=== PATIENT | female | born 1955 | race Hispanic/Latino ===

== ENCOUNTER 2018-08-11 13:56 | Emergency (ER) | payer OTHER ==
--- NOTE | 2018-08-11 15:35 | RAD REPORT ---
EXAM DESCRIPTION: Sharon Broussard (2 Views)08/11/2018 3:28 pm CLINICAL HISTORY: Chest pain COMPARISON: 2010 FINDINGS: The lungs appear clear of acute infiltrate. The heart is normal size IMPRESSION: No acute abnormalities displayed
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
--- NOTE | 2018-08-12 12:11 | EKG ---
Test Date: 2018-08-11 Test Time: 14:53:50 Electrical And Instrumentation Manager: ROBERT MEASUREMENT RESULTS: Intervals: Rate: 69 IL: 134 QRSD: 70 QT: 406 QTc: 435 [place]: P: 48 IL: 134 QRS: -19 T: 6 INTERPRETIVE STATEMENTS: Normal sinus rhythm Voltage criteria for left ventricular hypertrophy Abnormal ECG Compared to ECG 12/25/2010 02:38:49 No significant changes Electronically Signed On 08-12-18 12:07:42 CDT by Tre Humphreys
== END 2018-08-11 16:17 | disposition home or self-care (01) ==
LOC: ER 13:56
DX: T21.01XA Burn of unspecified degree of chest wall, initial encounter (principal); Z85.3 Personal history of malignant neoplasm of breast
CPT/HCPCS: 71046; 93005; 99284

== ENCOUNTER 2019-04-10 13:22 | Observation (INO) | payer OTHER, SELFPAY ==
[2019-04-10 14:38] LABS: Absolute Lymphocytes (CBC) 0.7 K/uL (0.7-4.9); Absolute Monocytes 0.3 K/uL (0.1-1.3); Absolute Neutrophil 8.8 K/uL (1.8-8.0); Basophils % 0.4 % (0-1.3); Lymphocytes % 6.9 % (15.3-44.8); MPV 8.3 fL (7.6-11.3); Monocytes % 3.1 % (3.3-12.3); RBC Red Blood Cell Count 5.11 M/uL (3.86-4.86)
[2019-04-10] MEDS ORDERED: FENTANYL CITR 100 MCG/2 ML ONE (14:40)
[2019-04-10] MEDS ORDERED: NA CHLORIDE 0.9% 500 ML ONE (14:40)
[2019-04-10] MEDS ORDERED: ONDANSETRON 4 MG/2 ML VIAL ONE (14:40)
[2019-04-10 14:41] LABS: Protime INR 1.04
[2019-04-10 15:15] LABS: Blood Morphology Comment NOT SEEN (NOT SEEN); Platelet Estimate ADEQ; Urine White Blood Cell Casts OK
[2019-04-10 15:22] LABS: ALT/SGPT 23 U/L (12-78); AST/SGOT 18 U/L (15-37); Albumin 3.7 g/dL (3.4-5.0); Alkaline Phosphatase 79 U/L (45-117); BUN Blood Urea Nitrogen 14 mg/dL (7-18); Bicarbonate 27 mmol/L (21-32); Bilirubin Direct 0.2 mg/dL (0-0.2); Bilirubin Total 0.8 mg/dL (0.2-1.0); Glucose Level 92 mg/dL (74-106); Lipase 132 U/L (73-393); NT PRO-BNP 279 pg/mL (<125); Potassium 3.7 mmol/L (3.5-5.1); Protein, Total 8.1 g/dL (6.4-8.2); Sodium Level 136 mmol/L (136-145); Troponin (Emerg Dept Use Only) < 0.02 ng/mL (0.0-0.045)
[2019-04-10] MEDS ORDERED: ACETAMINOPHEN 500 MG TAB ONE (15:53)
--- NOTE | 2019-04-10 15:54 | EDPHYS ---
Physician Documentation [facility] Name: Tessa Delvalle Age: 63 yrs Sex: Female : 1955 Arrival Date: 04/10/2019 Time: 13:25 Bed 5 Private MD: ED Physician Macho Foster HPI: 04/10 14:03 This 63 yrs old Female presents to ER via Ambulatory with complaints of alexis Breathing Difficulty, Weakness, Back Pain. 14:03 The patient has shortness of breath at rest, with light activity. Onset: The alexis symptoms/episode began/occurred 1 day(s) ago. Duration: The symptoms are continuous, and are steadily getting worse. The patient's shortness of breath has no apparent modifying factors. Associated signs and symptoms: Pertinent positives: nausea, PAIN ALL OVER, HEADACHE. Severity of symptoms: At their worst the symptoms were mild moderate in the emergency department the symptoms are unchanged. The patient has not experienced similar symptoms in the past. Historical: - Allergies: 13:37 No Known Allergies; aj1 - Home Meds: 13:37 None [Active]; aj1 - PMHx: 13:37 breast cancer; CHEMO/RADIATION; aj1 - Immunization history:: Flu vaccine is up to date. - Social history:: Smoking status: Patient/guardian denies using tobacco. - Ebola Screening: : Patient denies travel to an Ebola-affected area in the 21 days before illness onset. ROS: 14:05 Constitutional: Negative for fever, chills, and weight loss, Eyes: Negative for injury, alexis pain, redness, and discharge, ENT: Negative for injury, pain, and discharge, Neck: Negative for injury, pain, and swelling, Cardiovascular: Negative for chest pain, palpitations, and edema, Abdomen/GI: Negative for abdominal pain, nausea, vomiting, diarrhea, and constipation, : Negative for injury, bleeding, discharge, and swelling, MS/Extremity: Negative for injury and deformity, Skin: Negative for injury, rash, and discoloration, Psych: Negative for depression, anxiety, suicide ideation, homicidal ideation, and hallucinations, Allergy/Immunology: Negative for hives, rash, and allergies, Endocrine: Negative for neck swelling, polydipsia, polyuria, polyphagia, and marked weight changes, Hematologic/Lymphatic: Negative for swollen nodes, abnormal bleeding, and unusual bruising. 14:05 Respiratory: Positive for shortness of breath. 14:05 Back: Positive for pain at rest, pain with movement. 14:05 Neuro: Positive for headache. Exam: 14:05 Constitutional: This is a well developed, well nourished patient who is awake, alert, alexis and in no acute distress. Head/Face: Normocephalic, atraumatic. Eyes: Pupils equal round and reactive to light, extra-ocular motions intact. Lids and lashes normal. Conjunctiva and sclera are non-icteric and not injected. Cornea within normal limits. Periorbital areas with no swelling, redness, or edema. ENT: Nares patent. No nasal discharge, no septal abnormalities noted. Tympanic membranes are normal and external auditory canals are clear. Oropharynx with no redness, swelling, or masses, exudates, or evidence of obstruction, uvula midline. Mucous membranes moist. Neck: Trachea midline, no thyromegaly or masses palpated, and no cervical lymphadenopathy. Supple, full range of motion without nuchal rigidity, or vertebral point tenderness. No Meningismus. Chest/axilla: Normal chest wall appearance and motion. Nontender with no deformity. No lesions are appreciated. Cardiovascular: Regular rate and rhythm with a normal S1 and S2. No gallops, murmurs, or rubs. Normal PMI, no JVD. No pulse deficits. Respiratory: Lungs have equal breath sounds bilaterally, clear to auscultation and percussion. No rales, rhonchi or wheezes noted. No increased work of breathing, no retractions or nasal flaring. Abdomen/GI: Soft, non-tender, with normal bowel sounds. No distension or tympany. No guarding or rebound. No evidence of tenderness throughout. Back: No spinal tenderness. No costovertebral tenderness. Full range of motion. Skin: Warm, dry with normal turgor. Normal color with no rashes, no lesions, and no evidence of cellulitis. MS/ Extremity: Pulses equal, no cyanosis. Neurovascular intact. Full, normal range of motion. Neuro: Awake and alert, GCS 15, oriented to person, place, time, and situation. Cranial nerves II-XII grossly intact. Motor strength 5/5 in all extremities. Sensory grossly intact. Cerebellar exam normal. Normal gait. Psych: Awake, alert, with orientation to person, place and time. Behavior, mood, and affect are within normal limits. 14:05 Musculoskeletal/extremity: DVT Exam: No signs of deep vein thrombosis. no pain, no swelling, no tenderness, negative Homans' sign noted on exam, no appreciated bluish discoloration, no erythema, no increased warmth. Vital Signs: 13:37 BP 104 / 54; Pulse 107; Resp 20; Temp 97.4(O); Pulse Ox 97% on R/A; Weight 85.73 kg aj1 (R); Height 5 ft. 2 in. (157.48 cm) (R); Pain 8/10; 15:01 Pulse 113; Resp 20; Pulse Ox 99% ; sv 15:28 BP 116 / 75; Pulse 116; Resp 18; Pulse Ox 99% ; sv 15:31 Temp 103.0(O); ph 16:45 BP 106 / 56; Pulse 102; Resp 20; Temp 99.6; Pulse Ox 98% on R/A; ph 18:00 BP 108 / 72; Pulse 99; Resp 20; Pulse Ox 100% on R/A; Pain 0/10; ph 19:08 BP 115 / 99; Pulse 95; Resp 22; Temp 98.4; Pulse Ox 98% on R/A; ph 13:37 Body Mass Index 34.57 (85.73 kg, 157.48 cm) aj1 MDM: 13:57 Patient medically screened. [facility] 14:06 Data reviewed: vital signs, nurses notes, lab test result(s), EKG, radiologic studies, alexis plain films. 04/10 14:03 Order name: Basic Metabolic Panel; Complete Time: 15:42 [facility] 04/10 14:03 Order name: CBC with Diff; Complete Time: 15:42 [facility] 04/10 14:03 Order name: LFT's; Complete Time: 15:42 [facility] 04/10 14:03 Order name: Magnesium; Complete Time: 15:42 [facility] 04/10 14:03 Order name: NT PRO-BNP; Complete Time: 15:42 [facility] 04/10 14:03 Order name: PT-INR; Complete Time: 15:42 [facility] 04/10 14:03 Order name: Troponin (emerg Dept Use Only); Complete Time: 15:42 [facility] 04/10 14:03 Order name: Lipase; Complete Time: 15:42 [facility] 04/10 14:03 Order name: Urine Culture [facility] 04/10 14:47 Order name: CBC Smear Scan; Complete Time: 15:42 EDWA 04/10 15:41 Order name: Blood Culture Adult (2) [facility] 04/10 15:41 Order name: Procalcitonin [facility] 04/10 15:41 Order name: Lactate [facility] 04/10 15:54 Order name: Flu [facility] 04/10 14:03 Order name: XRAY Chest (1 view); Complete Time: 16:31 [facility] 04/10 14:03 Order name: EKG; Complete Time: 14:04 [facility] 04/10 15:54 Order name: Strep; Complete Time: 16:31 [facility] 04/10 16:26 Order name: Throat Culture EDWA 04/10 17:00 Order name: CT Stone Protocol [facility] 04/10 17:04 Order name: Urine Dipstick--Ancillary (enter results) 04/10 14:03 Order name: Cardiac monitoring; Complete Time: 14:14 [facility] 04/10 14:03 Order name: EKG - Nurse/Tech; Complete Time: 14:14 [facility] 04/10 14:03 Order name: IV Saline Lock; Complete Time: 14:18 [facility] 04/10 14:03 Order name: Labs collected and sent; Complete Time: 14:18 [facility] 04/10 14:03 Order name: O2 Per Protocol; Complete Time: 14:14 [facility] 04/10 14:03 Order name: O2 Sat Monitoring; Complete Time: 14:14 [facility] 04/10 14:03 Order name: Urine Dipstick-Ancillary (obtain specimen); Complete Time: 17:03 [facility] 04/10 16:38 Order name: Diet Ada 1800 Jose; Complete Time: 16:39 ph Administered Medications: 14:30 Drug: NS 0.9% 500 ml Route: IV; Rate: bolus; Site: right antecubital; sv 14:45 Follow up: Response: No adverse reaction; IV Status: Completed infusion; IV Intake: ph 500ml 14:30 Drug: Zofran 4 mg Route: IVP; Site: right antecubital; sv 18:26 Follow up: Response: No adverse reaction ph 14:32 Drug: fentaNYL (PF) 25 mcg Route: IVP; Site: right antecubital; sv 15:00 Follow up: Response: No adverse reaction; Pain is decreased ph 15:00 Drug: NS 0.9% 1000 ml Route: IV; Rate: 125 ml/hr; Site: right antecubital; ph 18:58 Follow up: Response: No adverse reaction; IV Status: Infusion continued upon admission ph 15:51 Drug: Tylenol 1000 mg Route: PO; ph 17:00 Follow up: Response: No adverse reaction; Temperature is decreased ph 15:51 Drug: NS 0.9% 1000 ml Route: IV; Rate: 1 bolus; Site: right antecubital; ph 18:24 Follow up: Response: No adverse reaction; IV Status: Completed infusion; IV Intake: ph 1000ml 18:00 Drug: Rocephin - (cefTRIAXone) 1 grams Route: IVPB; Infused Over: 30 mins; Site: right ph hand; 19:05 Follow up: Response: No adverse reaction; IV Status: Completed infusion ph 18:20 Drug: NS 0.9% 1000 ml Route: IV; Rate: 1 bolus; Site: right hand; ph 20:00 Follow up: Response: No adverse reaction; IV Status: Infusion continued upon admission jd3 19:27 Not Given (Other Intervention Used): vancoMYCIN 1 grams IVPB once over 2 hrs ph 19:28 Not Given (Patient Refused): fentaNYL (PF) 25 mcg IVP once ph Disposition: 04/10/19 15:53 Hospitalization ordered by Amanda Ford for Inpatient Admission. Preliminary diagnosis are Dyspnea, Fever, unspecified, Malaise and fatigue, Cystitis. - Bed requested for Telemetry/MedSurg (Inpatient). - Status is Inpatient Admission. jd3 - Condition is Stable. - Problem is new. - Symptoms have improved. UTI on Admission? Yes Signatures: Dispatcher [employer] EDWA Josselin Rodriguez RN RN aj1 Mercy Morales RN Darlene Browning ph D, RN RN dw Anderson, Corey, MD MD cha Smirch, Shelby, RN RN ss Hall, Patricia, RN RNavies, Jonathon, RN RN jd3 Corrections: (The following items were deleted from the chart) 17:00 15:53 Hospitalization Ordered by Amanda Ford MD for Inpatient Admission. Preliminary [facility] diagnosis is Dyspnea; Fever, unspecified; Malaise and fatigue. Bed requested for Telemetry/MedSurg (Inpatient). Status is Inpatient Admission. Condition is Stable. Problem is new. Symptoms have improved. UTI on Admission? No. [facility] 18:39 17:00 04/10/2019 15:53 Hospitalization Ordered by Amanda Ford MD for Inpatient dw Admission. Preliminary diagnosis is Dyspnea; Fever, unspecified; Malaise and fatigue; Cystitis. Bed requested for Telemetry/MedSurg (Inpatient). Status is Inpatient Admission. Condition is Stable. Problem is new. Symptoms have improved. UTI on Admission? Yes. [facility] 20:14 18:39 04/10/2019 15:53 Hospitalization Ordered by Amanda Ford MD for Inpatient jd3 Admission. Preliminary diagnosis is Dyspnea; Fever, unspecified; Malaise and fatigue; Cystitis. Bed requested for Telemetry/MedSurg (Inpatient). Status is Inpatient Admission. Condition is Stable. Problem is new. Symptoms have improved. UTI on Admission? Yes. dw
--- NOTE | 2019-04-10 15:54 | ER ---
Nurse's Notes [facility] Name: Tessa Delvalle Age: 63 yrs Sex: Female : 1955 Arrival Date: 04/10/2019 Time: 13:25 Bed 5 Private MD: Diagnosis: Dyspnea;Fever, unspecified;Malaise and fatigue;Cystitis Presentation: 04/10 13:36 Presenting complaint: Patient states: "yesterday I had an injection for osteoporosis aj1 and I think it made me sick. My back hurts, and I feel like I can't breathe too well". Transition of care: patient was not received from another setting of care. Onset of symptoms was April 10, 2019. Risk Assessment: Do you want to hurt yourself or someone else? Patient reports no desire to harm self or others. Initial Sepsis Screen: Does the patient meet any 2 criteria? HR > 90 bpm. No. Patient's initial sepsis screen is negative. Does the patient have a suspected source of infection? No. Patient's initial sepsis screen is negative. Care prior to arrival: None. 13:36 Method Of Arrival: Ambulatory aj 13:36 Acuity: ASTON 3 aj1 Triage Assessment: 13:37 General: Appears in no apparent distress. comfortable, Behavior is calm, cooperative, aj1 appropriate for age. Pain: Complains of pain in back and neck Pain currently is 8 out of 10 on a pain scale. Neuro: Level of Consciousness is awake, alert, obeys commands. Cardiovascular: Patient's skin is warm and dry. Respiratory: Reports shortness of breath Airway is patent Respiratory effort is even, unlabored, Respiratory pattern is regular, symmetrical, Onset: The symptoms/episode began/occurred today, the patient has mild shortness of breath. Historical: - Allergies: 13:37 No Known Allergies; aj1 - Home Meds: 13:37 None [Active]; aj1 - PMHx: 13:37 breast cancer; CHEMO/RADIATION; aj1 - Immunization history:: Flu vaccine is up to date. - Social history:: Smoking status: Patient/guardian denies using tobacco. - Ebola Screening: : Patient denies travel to an Ebola-affected area in the 21 days before illness onset. Screenin:31 Abuse screen: Denies threats or abuse. Denies injuries from another. Nutritional ph screening: No deficits noted. Tuberculosis screening: No symptoms or risk factors identified. Fall Risk None identified. Assessment: 14:15 General: Appears in no apparent distress. uncomfortable, obese, well groomed, Behavior ph is calm, cooperative, appropriate for age. Pain: Complains of pain in left mid back and right mid back and neck. Cardiovascular: Reports fatigue, shortness of breath, Denies chest pain, nausea, palpitations, vomiting, Capillary refill < 3 seconds in bilateral fingers Patient's skin is warm and dry. Respiratory: Airway is patent Respiratory effort is even, unlabored, Respiratory pattern is regular, symmetrical, Breath sounds are clear bilaterally. GI: Reports nausea, Patient currently denies abdominal pain, diarrhea, vomiting. : Reports burning with urination. Derm: Skin is intact, Skin is pink, warm \\T\\ dry. Musculoskeletal: Circulation, motion, and sensation intact. Range of motion: intact in all extremities. 15:30 Reassessment: Patient appears in no apparent distress at this time. Patient and/or ph family updated on plan of care and expected duration. Pain level reassessed. Patient is alert, oriented x 3, equal unlabored respirations, skin warm/dry/pink. Pt reports that pain has improved, awaiting lab results, will continue to monitor. 16:30 Reassessment: Patient appears in no apparent distress at this time. Patient and/or ph family updated on plan of care and expected duration. Pain level reassessed. Patient is alert, oriented x 3, equal unlabored respirations, skin warm/dry/pink. Dr Ford at bedside to speak w/ pt. 17:19 Reassessment: Patient appears in no apparent distress at this time. Patient and/or ph family updated on plan of care and expected duration. Pain level reassessed. Patient is alert, oriented x 3, equal unlabored respirations, skin warm/dry/pink. Pt resting quietly, denies pain at this time, awaiting room assignment. 18:30 Reassessment: Patient appears in no apparent distress at this time. Patient and/or ph family updated on plan of care and expected duration. Pain level reassessed. Patient is alert, oriented x 3, equal unlabored respirations, skin warm/dry/pink. Pt sitting at bedside eating dinner, tolerating well Patient denies pain at this time. 19:00 Cardiovascular: Rhythm is regular. jd3 19:00 Reassessment: Patient appears in no apparent distress at this time. Patient and/or jd3 family updated on plan of care and expected duration. Pain level reassessed. Patient is alert, oriented x 3, equal unlabored respirations, skin warm/dry/pink. 19:50 Reassessment: Patient appears in no apparent distress at this time. Patient and/or jd3 family updated on plan of care and expected duration. Pain level reassessed. Patient is alert, oriented x 3, equal unlabored respirations, skin warm/dry/pink. Vital Signs: 13:37 BP 104 / 54; Pulse 107; Resp 20; Temp 97.4(O); Pulse Ox 97% on R/A; Weight 85.73 kg aj1 (R); Height 5 ft. 2 in. (157.48 cm) (R); Pain 8/10; 15:01 Pulse 113; Resp 20; Pulse Ox 99% ; sv 15:28 BP 116 / 75; Pulse 116; Resp 18; Pulse Ox 99% ; sv 15:31 Temp 103.0(O); ph 16:45 BP 106 / 56; Pulse 102; Resp 20; Temp 99.6; Pulse Ox 98% on R/A; ph 18:00 BP 108 / 72; Pulse 99; Resp 20; Pulse Ox 100% on R/A; Pain 0/10; ph 19:08 BP 115 / 99; Pulse 95; Resp 22; Temp 98.4; Pulse Ox 98% on R/A; ph 13:37 Body Mass Index 34.57 (85.73 kg, 157.48 cm) aj1 ED Course: 13:25 Patient arrived in ED. mr 13:37 Triage completed. aj1 13:37 Arm band placed on Patient placed in an exam room. aj1 13:45 Aubrie Aawd, RN is Primary Nurse. ph 13:57 Macho Foster MD is Attending Physician. [facility] 14:09 EKG done, by specimen technician. reviewed by Macho Foster MD. 3 14:14 Missed attempt(s): 20 gauge in right antecubital area. Bleeding controlled, band aid ms applied, catheter tip intact. 14:21 Inserted saline lock: 22 gauge in right antecubital area, using aseptic technique. ss Blood collected. 14:30 Door closed. Noise minimized. Warm blanket given. ph 15:11 X-ray completed. Portable x-ray completed in exam room. Patient tolerated procedure mh1 well. 15:12 XRAY Chest (1 view) In Process Unspecified. EDMS 15:50 Patient has correct armband on for positive identification. Placed in gown. Bed in low ph position. Call light in reach. Side rails up X 1. property assessment monitor on. Pulse ox on. NIBP on. 15:52 Amanda Ford MD is Hospitalizing Provider. alexis 16:30 Inserted saline lock: 22 gauge in right hand, using aseptic technique. ph 17:03 Urine collected: clean catch specimen, cloudy. ms 17:15 No provider procedures requiring assistance completed. ph 17:24 CT Stone Protocol In Process Unspecified. EDMS 17:30 CT completed. Patient tolerated procedure well. Patient moved to CT. Patient moved back dc from CT. 18:57 Patient admitted, IV remains in place. ph Administered Medications: 14:30 Drug: NS 0.9% 500 ml Route: IV; Rate: bolus; Site: right antecubital; sv 14:45 Follow up: Response: No adverse reaction; IV Status: Completed infusion; IV Intake: ph 500ml 14:30 Drug: Zofran 4 mg Route: IVP; Site: right antecubital; sv 18:26 Follow up: Response: No adverse reaction ph 14:32 Drug: fentaNYL (PF) 25 mcg Route: IVP; Site: right antecubital; sv 15:00 Follow up: Response: No adverse reaction; Pain is decreased ph 15:00 Drug: NS 0.9% 1000 ml Route: IV; Rate: 125 ml/hr; Site: right antecubital; ph 18:58 Follow up: Response: No adverse reaction; IV Status: Infusion continued upon admission ph 15:51 Drug: Tylenol 1000 mg Route: PO; ph 17:00 Follow up: Response: No adverse reaction; Temperature is decreased ph 15:51 Drug: NS 0.9% 1000 ml Route: IV; Rate: 1 bolus; Site: right antecubital; ph 18:24 Follow up: Response: No adverse reaction; IV Status: Completed infusion; IV Intake: ph 1000ml 18:00 Drug: Rocephin - (cefTRIAXone) 1 grams Route: IVPB; Infused Over: 30 mins; Site: right ph hand; 19:05 Follow up: Response: No adverse reaction; IV Status: Completed infusion ph 18:20 Drug: NS 0.9% 1000 ml Route: IV; Rate: 1 bolus; Site: right hand; ph 20:00 Follow up: Response: No adverse reaction; IV Status: Infusion continued upon admission jd3 19:27 Not Given (Other Intervention Used): vancoMYCIN 1 grams IVPB once over 2 hrs ph 19:28 Not Given (Patient Refused): fentaNYL (PF) 25 mcg IVP once ph Intake: 14:45 IV: 500ml; Total: 500ml. ph 18:24 IV: 1000ml; Total: 1500ml. ph Outcome: 15:53 Decision to Hospitalize by Provider. alexis 20:14 Patient left the ED. jfaviola 21:17 Admitted to Med/surg accompanied by tech, via wheelchair, room 411, with chart, Report jd3 called to Dorcas OLIVA 21:17 Condition: stable 21:17 Instructed on the need for admit, Demonstrated understanding of instructions. Signatures: Dispatcher [employer] EDJosselin Cassidy RN RN ajMercy Chen, RN Macho Zhou MD MD cha Rivera, Erika mr Wayne, Angeles 1 Kvng, Anabela ms Junie Lance, HAZEL OLIVA Aubrie Awad RN RN Sebastian, Nelson Argueta RN RN jd3 Montes, Shakira 3
[2019-04-10] MEDS ORDERED: NA CHLORIDE 0.9% 2,000 ML ONE (15:56)
--- NOTE | 2019-04-10 16:06 | RAD REPORT ---
EXAM DESCRIPTION: RAD - Chest Single View - 04/10/2019 3:12 pm CLINICAL HISTORY: Cough, chest pain COMPARISON: July 2018 TECHNIQUE: AP portable chest image was obtained 1457 hours . FINDINGS: Lung volumes are low. Interstitial markings are prominent. No peripheral mass or consolida tion. Heart and vasculature are normal. No measurable pleural effusion and no pneumothorax. No acute bony abnormality seen. No acute aortic findings suspected. IMPRESSION: No acute cardiopulmonary process. Prominent interstitial pattern is similar to comparison.
[2019-04-10] MEDS ORDERED: CEFTRIAXONE/SWI 1gm 1 GM/10 ML SYR ONE (17:01)
[2019-04-10 17:06] LABS: Urine Blood 2+ (NEG); Urine Glucose NEGATIVE (NEG); Urine Protein NEGATIVE (NEG)
--- NOTE | 2019-04-10 17:41 | RAD REPORT ---
EXAM DESCRIPTION: CT - Stone Protocol - 04/10/2019 5:24 pm CLINICAL HISTORY: Back pain, bilateral flank pain COMPARISON: None. TECHNIQUE: Axial 5 mm thick images were obtained without oral or IV contrast. The [id number] span s the entirety of the system including uppermost abdomen and lung bases. All CT scans are performed using dose optimization technique as appropriate and may include automated exposure control or mA/KV adjustment according to patient size. FINDINGS: No hydronephrosis is present and no obstructing ureteral calculi. Isodense masses and pyel onephritis are not excluded on stone protocol study. In the posterior mid right kidney there is an 8 millimeter exophytic round mass that is isodense to the parenchyma. This is probably a high protein c ontent cyst. Small solid mass is not excluded. Re-evaluation in 6 months could be performed to monito r for growth. No urinary bladder suspicious finding. No significant adrenal finding. Uterus is absent or atrophic. No uterine, ovarian or adnexal abnormality suspected. No focal liver abnormality. Liver shows a mild fatty infiltration pattern. Spleen, pancreas, gallblad melina and biliary tree show no suspicious findings. Gallstones can be occult on CT imaging. No acute bowel finding. No mass or bulky lymphadenopathy. A fat only supraumbilical ventral hernias present extending just of f the midline to the right. Neck is 2.1 cm. No congestion or edema. Adjacent bowel is uninvolved. No free air, free fluid or inflammatory stranding. Disc and bony degenerative changes are present. No pathologic bone process seen. IMPRESSION: No hydronephrosis, obstructing calculus or acute finding. Small 8 mm exophytic isodense mass posterior mid right kidney is probably a complex cyst. CT re-evalu ation in 6 months could be performed to evaluate for any growth. No other significant or suspicious findings. No abnormality seen to explain back/ flank pain. Isodense masses and pyelonephritis are not excluded on stone protocol technique.
[2019-04-10] MEDS ORDERED: VANCOMYCIN 1.5 GM in NA CHLORIDE 0.9% 500 ML IVPB ONE (19:00)
[2019-04-10] MEDS ORDERED: VANCOMYCIN/NS 1 gm 1 GM/250 ML BAG IVPB SCH (20:32)
[2019-04-10] MEDS ORDERED: ONDANSETRON 4 MG/2 ML VIAL IV PRN (20:32)
[2019-04-10 21:30] VITALS: BMI 34.5
[2019-04-10] MEDS: NA CHLORIDE 0.9% 1,000 ML IV SCH (22:03)
[2019-04-11 04:14] LABS: Potassium 3.6 mmol/L (3.5-5.1)
[2019-04-11] MEDS: NA CHLORIDE 0.9% 1,000 ML IV SCH ×4 (04:32→21:30)
[2019-04-11 05:14] LABS: Absolute Lymphocytes (CBC) 0.8 K/uL (0.7-4.9); Absolute Monocytes 0.3 K/uL (0.1-1.3); Absolute Neutrophil 5.5 K/uL (1.8-8.0); Basophils % 0.7 % (0-1.3); Eosinophils % 0.5 % (0-4.4); MPV 8.3 fL (7.6-11.3); Monocytes % 4.3 % (3.3-12.3); RBC Red Blood Cell Count 4.44 M/uL (3.86-4.86)
--- NOTE | 2019-04-11 05:26 | HP ---
Date of Admission: 04/10/2019 Primary Care Physician: Out of town. Chief Complaint: Generalized weakness, fever. History Of Present Illness: The patient is a 63-year-old female with past medical history of breast cancer status post left lumpectomy, borderline diabetes, osteoporosis, who had her first dose of Recl ast at [facility] in [place] yesterday. The patient woke up, had generalized weakness, musculos keletal pain, felt like she had the flu. The patient came into the ER. Her symptoms are constant, m oderate, progressively worsening. She denied any chest pain. No cough, sputum production. No ill c ontacts. The patient did report some nausea and vomiting and decreased appetite. No diarrhea. The patient also reported some burning on urination and urinary frequency. In the ER, the patient spiked a temperature of 103. Her workup revealed normal WBC count. Her electrolytes were also normal. Pr ocalcitonin and lactate were negative. She did not appear to be septic, however. Her temperature wa s high at 103. She also had tachycardia and she was tachypneic. Her UA was positive. The patient w as given Rocephin bolus with IV fluids and then referred for admission. When seen in the ER, she was awake, alert, oriented x3, in some mild distress. Past Medical History: Breast cancer on the left, status post lumpectomy and lymph node dissection, b orderline diabetes, osteoporosis, prolapsed bladder with mesh placement. Allergies: NO KNOWN DRUG ALLERGIES. Medications: Reviewed. Social History: The patient denies any tobacco use, alcohol use, or illicit drug use. Family History: Brother has cancer. Mom had stroke. Dad had IN. Review of Systems: Eleven-point system reviewed, negative except as per HPI. Physical Examination: Vital Signs: Blood pressure 104/54, pulse 107, respirations 20, temperature 97.4, O2 97% on room air . The patient subsequently had temperature of 103. General: Awake, alert, oriented x3. Some mild distress, ill-appearing female, obese. HEENT: Normocephalic, atraumatic. PERRLA. EOMI. Dry mucous membranes. Oropharynx is clear. Conj unctivae anicteric. Neck: Supple. No JVD. Trachea midline. CV: S1, S2. Sinus tachycardia. Peripheral pulses are present. No murmurs. Respiratory: Clear to auscultation bilaterally. No wheezing or stridor. No use of accessory muscle s. Gastrointestinal: Abdomen is soft, nontender, nondistended. Positive bowel sounds. No guarding or rigidity. Extremities: No clubbing, cyanosis, or edema. No calf tenderness. Neuro: Cranial nerves 2 through 12 intact grossly. No focal neurological deficit. Speech is normal . Skin: No rashes. Normal skin turgor. Psych: Mood is okay. Affect is full. Insight and judgment are good. Laboratory Data: UA with negative nitrite, 3+ leukocyte esterase. Micro is pending. Sodium 136, po tassium 3.7, chloride 102, CO2 27, BUN 14, creatinine 0.89, glucose 92, lactate 1.1, calcium 8.5, mag nesium 2. Troponin less than 0.02, BNP 279, lipase 132. Procalcitonin less than 0.05. INR 1.04. W BC 9.9, H and H 14.3 and 43, platelets 307, neutrophils 89%. Strep screen is negative. Influenza sc reen also negative. Imaging Studies: Chest x-ray shows no acute intrathoracic process. Prominent interstitial pattern s imilar to comparison. CT scan of the abdomen showed no hydronephrosis, obstructing calculus or acute finding. Small 8-mm exophytic isodense mass posterior mid right kidney is probably a complex cys t. CT re-evaluation in 6 months could be performed to evaluate for any growth. No significant or butts spicious findings. No abnormality seen to explain back or flank pain. Assessment And Plan: A 63-year-old female with: 1.Generalized weakness. 2.Fever 103. 3.History of breast cancer on the left, status post lumpectomy. 4.Prediabetes. 5.Generalized osteoporosis, currently on Reclast. 6.Obesity, BMI 34. Admit patient to [facility] as observation. Possibility that the patient's symptoms are related to side effects of Reclast; however, fever of 103 is uncommon. We will obtain blood cultures and ur ine cultures and start on broad-spectrum IV antibiotics. Acute cystitis without hematuria. We will continue with Rocephin and follow up on urine culture. Fl u and strep screen were negative. Resume home medications as appropriate. The patient has been coun seled regarding her obesity. If the patient's symptoms improve, her dehydration and hypertension res olved and she is afebrile, we will likely discharge in a.m. MEERA Voice ID: [id number]
[2019-04-11] MEDS: ACETAMINOPHEN 500 MG TAB PO PRN ×2 (05:50→21:33)
--- NOTE | 2019-04-11 07:51 | EKG ---
Test Date: 2019-04-10 Test Time: 14:09:32 Cd Mixer Helper: ROBERT MEASUREMENT RESULTS: Intervals: Rate: 105 CA: 128 QRSD: 66 QT: 316 QTc: 417 [place]: P: 58 CA: 128 QRS: 17 T: 6 INTERPRETIVE STATEMENTS: Sinus tachycardia Minimal voltage criteria for LVH, may be normal variant Borderline ECG Compared to ECG 08/11/2018 14:53:50 Sinus rhythm no longer present Electronically Signed On 04-11-19 07:50:53 CDT by Azar Sepulveda
[2019-04-11] MEDS: CEFTRIAXONE/SWI 1gm 1 GM/10 ML SYR IV SCH (08:33)
[2019-04-11] MEDS ORDERED: CEFTRIAXONE 1 GM/NS 50 ML 1 GM/50 ML BAG IV SCH (09:00)
--- NOTE | 2019-04-11 11:07 | RAD REPORT ---
EXAM DESCRIPTION: RAD - Knee Right 2 View - 04/11/2019 10:34 am CLINICAL HISTORY: Right knee pain and swelling FINDINGS: No fracture or dislocation is seen. Moderate joint effusion
[2019-04-11] MEDS: VANCOMYCIN 1.5 GM in NA CHLORIDE 0.9% 500 ML IVPB SCH (11:58)
[2019-04-11] MEDS ORDERED: VANCOMYCIN 1.5 GM in NA CHLORIDE 0.9% 500 ML IVPB SCH (19:00)
--- NOTE | 2019-04-11 19:44 | PN ---
Date of Progress Note: 04/11/2019 Subjective: The patient is seen and examined. Chart reviewed and case discussed with RN. The patie nt continues to have temperature spikes at a temperature of 103 yesterday around 3 p.m., low-grade te mperatures of 100.1 this morning. The patient overall feels okay complaining of some swelling of her right knee. Denies any trauma to the area. Medications: List reviewed. Physical Examination: Vital Signs: Temperature 98.1, T-max 103.1, heart rate 84, blood pressure 142/71, respirations 20, O 2 98% on room air. General: Awake, alert, oriented x3, obese female. CV: S2 and S2. Regular rate and rhythm. Peripheral pulses present. Respiratory: Moving air well bilaterally. No wheezing or stridor. No use of accessory muscles. Gastrointestinal: Abdomen is soft, nontender, nondistended. Positive bowel sounds. Extremities: No clubbing, cyanosis, or edema. Neurologic: Nonfocal. Musculoskeletal: Right knee warm to touch. Swelling. No apparent effusion. No redness. Decreased range of motion. Laboratory Data: Sodium 138, potassium 3.6, chloride 109, CO2 23, BUN 11, creatinine 0.71, glucose 1 41, calcium 7.3. WBC 6.6, H and H 12.6 and 37, platelets 258, neutrophils 82%. Cultures are pending . Strep screen and influenza screen were negative. Throat culture growing normal upper respiratory lamar. Knee x-ray on the right shows no fracture dislocation, moderate joint effusion. Assessment And Plan: A 63-year-old female with: 1.Acute generalized weakness, improving. We will continue with physical therapy. 2.Fever of unclear origin, may be secondary to urinary tract infection. The patient also has right knee effusion, however, no hardware. Doubt joint infection. 3.History of breast cancer on the left, status post lumpectomy. 4.Obesity, BMI 34. 5.Prediabetes. The patient has been counseled. The patient will need to implement exercise and t regimen. 6.Generalized osteoporosis, on Reclast. 7.Deep vein thrombosis prophylaxis with Lovenox. 8.Acute cystitis without hematuria. Continue Rocephin. Follow up on cultures. 9.Right renal cyst. Repeat CT scan in 6 months. Plan: The patient is still having temperature spikes. We will continue to monitor. Follow up on cu lture results. Continue broad-spectrum IV antibiotics. Discontinue once afebrile greater than 24 ho urs. The patient does have right knee effusion. The patient denies any acute trauma. Other imaging studies did not show any acute infection. /ANTONINA Voice ID: [id number] Report ID: [id number]
[2019-04-12] MEDS: NA CHLORIDE 0.9% 1,000 ML IV SCH (05:25)
[2019-04-12] MEDS: VANCOMYCIN 1.5 GM in NA CHLORIDE 0.9% 500 ML IVPB SCH (05:25)
[2019-04-12] MEDS: CEFTRIAXONE/SWI 1gm 1 GM/10 ML SYR IV SCH (07:43)
[2019-04-12 09:28] VITALS: BP 129/58; TEMP 98.5
[2019-04-12 10:04] VITALS: O2SAT 96
--- NOTE | 2019-04-13 12:01 | DS ---
Date of Discharge: 04/12/2019 Admitting Diagnoses: 1.Generalized weakness. 2.Fever. 3.History of breast cancer on the left, status post lumpectomy. 4.Prediabetes. 5.Generalized osteoporosis, on Reclast. 6.Obesity, BMI of 34. Discharge Diagnoses: 1.Generalized weakness, resolved. 2.Fever, resolved. 3.Acute cystitis without hematuria. 4.Obesity, BMI of 34.6. 5.Osteoporosis, on Reclast. 6.Prediabetes. 7.History of breast cancer on the left, status post lumpectomy and lymph node dissection. Hospital Course: The patient is a 63-year-old female, past medical history of breast cancer, borderl ine diabetes, osteoporosis, had first dose of Reclast the day prior to admission. The following day on the day of admission, the patient developed high fevers, generalized weakness, flu-like symptoms. The patient came into the ER for further evaluation. She was admitted for evaluation and treatment of her fever, which was an unclear etiology. Cultures were obtained. She was started on broad-spect rum IV antibiotics. Her UA did show leukocyte positive and she had urinary frequency and dysuria. S he was treated for urinary tract infection with Rocephin. Culture showed mixed lamar. Her influenza screen, throat culture and rapid strep screen were negative. The patient continued to have temperat ure spikes. Last temperature was 100.1 on 04/11 in the morning. The patient remained afebrile for g reater than 24 hours. Her blood cultures remained negative. She was feeling better. She was able t o ambulate, however, she did report some pain and swelling of her right knee. X-ray showed pleural e ffusion. She had denied any recent trauma. CT scan of the abdomen did show a right renal cyst and t he patient will need repeat imaging study for followup. The patient was then cleared for discharge. She was feeling well. Her pain had resolved. She did n ot have any further fevers. This may be related to side effect from Reclast, which can cause fever a nd generalized weakness or may be related to her UTI combination thereof. The patient was then disch arged home in a stable condition. Activity: As tolerated. Medications: As per medication reconciliation list. Followup: Follow up with primary care physician in 2 to 3 days. Return to ER for worsening conditio n. Diet: Diabetic diet. Physical Examination: General: Awake, alert, oriented x3, not in any acute distress, obese female. CV: S1, S2. Respiratory: Moving air well bilaterally, no wheezing. Gastrointestinal: Abdomen is soft, nontender, nondistended. Positive bowel sounds. Extremities: No clubbing, cyanosis, or peripheral edema. Musculoskeletal: Right knee effusion, improving. Neurologic: Nonfocal. Followup: The patient recommended to have repeat CT scan for further evaluation of her upper right r enal cyst in the next 3 to 6 months. /ANTONINA Voice ID: [id number] Report ID: [id number]
== END 2019-04-12 12:00 | disposition home or self-care (01) ==
LOC: ER 13:22 → ERHOLD 17:15 → 4TH 19:41
PROVIDERS: ADMIT Family Medicine; ATTEND Family Medicine
DX: R50.9 Fever, unspecified (principal); R53.1 Weakness; N30.00 Acute cystitis without hematuria; R73.03 Prediabetes; M81.0 Age-related osteoporosis without current pathological fracture; N28.1 Cyst of kidney, acquired; M25.461 Effusion, right knee; E66.9 Obesity, unspecified; Z85.3 Personal history of malignant neoplasm of breast; Z68.34 Body mass index [BMI] 34.0-34.9, adult
CPT/HCPCS: 36415; 71045; 74176; 76377; 80048; 80076; 81003; 82962; 83605; 83690; 83735; 83880; 84145; 84484; 85025; 85610; 87040; 87070; 87081; 87086; 87088; 87804; 93005; 94760; 96361; 96365; 96367; 96375; 99285; G0378; J0696; J2405; J3010; J7030

== ENCOUNTER 2019-07-02 09:59 | Emergency (ER) | payer OTHER ==
--- NOTE | 2019-07-02 10:41 | EDPHYS ---
Physician Documentation [facility] Name: Tessa Delvalle Age: 63 yrs Sex: Female : 1955 Arrival Date: 07/02/2019 Time: 10:03 Bed 24 Private MD: ED Physician Masoud Delaney HPI: 07/02 10:38 This 63 yrs old Female presents to ER via Ambulatory with complaints of Rash. pm1 10:38 The patient's rash thought to be caused by an unknown cause. The rash is located on the pm1 underneath left breast. Associated signs and symptoms: Pertinent positives: itching, Pertinent negatives: difficulty breathing, fever, Pain. Severity of symptoms: in the emergency department the symptoms are worse. The patient has not experienced similar symptoms in the past. Patient with complaints of itchy rash underneath left breast for the past 3 weeks. Also presenting with pimples around mouth area. Historical: - Allergies: 10:09 No Known Allergies; hb - Immunization history:: Adult Immunizations up to date. - Social history:: Smoking status: Patient/guardian denies using tobacco. - Ebola Screening: : No symptoms or risks identified at this time. ROS: 10:38 Constitutional: Negative for fever, chills, and weight loss, Eyes: Negative for injury, pm1 pain, redness, and discharge, ENT: Negative for injury, pain, and discharge, Neck: Negative for injury, pain, and swelling, Cardiovascular: Negative for chest pain, palpitations, and edema, Respiratory: Negative for shortness of breath, cough, wheezing, and pleuritic chest pain, Abdomen/GI: Negative for abdominal pain, nausea, vomiting, diarrhea, and constipation, Back: Negative for injury and pain, MS/Extremity: Negative for injury and deformity. 10:38 Neuro: Negative for headache, weakness, numbness, tingling, and seizure. 10:38 Skin: Positive for rash, of the Underneath left breast and face, Negative for swelling. Exam: 10:38 Constitutional: This is a well developed, well nourished patient who is awake, alert, pm1 and in no acute distress. Head/Face: Normocephalic, atraumatic. Neck: Trachea midline, no thyromegaly or masses palpated, and no cervical lymphadenopathy. Supple, full range of motion without nuchal rigidity, or vertebral point tenderness. No Meningismus. Chest/axilla: Normal chest wall appearance and motion. Nontender with no deformity. No lesions are appreciated. Cardiovascular: Regular rate and rhythm with a normal S1 and S2. No gallops, murmurs, or rubs. Normal PMI, no JVD. No pulse deficits. Respiratory: Lungs have equal breath sounds bilaterally, clear to auscultation and percussion. No rales, rhonchi or wheezes noted. No increased work of breathing, no retractions or nasal flaring. Abdomen/GI: Soft, non-tender, with normal bowel sounds. No distension or tympany. No guarding or rebound. No evidence of tenderness throughout. Back: No spinal tenderness. No costovertebral tenderness. Full range of motion. MS/ Extremity: Pulses equal, no cyanosis. Neurovascular intact. Full, normal range of motion. 10:38 Skin: Appearance: normal except for affected area, consistent with ringworm. Vital Signs: 10:09 BP 142 / 74; Pulse 71; Resp 16; Temp 97.2; Pulse Ox 100% on R/A; Weight 88.45 kg; hb Height 5 ft. 2 in. (157.48 cm); Pain 0/10; 10:09 Body Mass Index 35.67 (88.45 kg, 157.48 cm) hb MDM: 10:38 Patient medically screened. pm1 10:38 Data reviewed: vital signs. Data interpreted: Pulse oximetry: on room air is 100 %. pm1 Interpretation: normal. Counseling: I had a detailed discussion with the patient and/or guardian regarding: the historical points, exam findings, and any diagnostic results supporting the discharge/admit diagnosis, the need for outpatient follow up, a family practitioner, to return to the emergency department if symptoms worsen or persist or if there are any questions or concerns that arise at home. Administered Medications: No medications were administered Disposition: 07/03 07:46 Co-signature as Attending Physician, Masoud Delaney MD I agree with the assessment and wa plan of care. Disposition: 07/02/19 10:40 Discharged to Home. Impression: Tinea corporis. - Condition is Stable. - Discharge Instructions: Body Ringworm. - Prescriptions for Clotrimazole 1 % Topical Cream - Apply to affected area 1 application by TOPICAL route every 12 hours; 15 gram. - Medication Reconciliation Form, Thank You Letter, Antibiotic Education, Prescription Opioid Use form. - Follow up: Emergency Department; When: As needed; Reason: Worsening of condition. Follow up: Private Physician; When: 2 - 3 days; Reason: Recheck today's complaints, Continuance of care, Re-evaluation by your physician. - Problem is new. - Symptoms have improved. Signatures: Josselin Rodriguez RN RN aj1 Darius Gregory NP M[employer]AR MIXER OPERATOR pm1 Ladonna Alba RN RN Masoud Delaney MD MD ri Corrections: (The following items were deleted from the chart) 07/02 11:03 10:40 07/02/2019 10:40 Discharged to Home. Impression: Tinea corporis. Condition is aj1 Stable. Forms are Medication Reconciliation Form, Thank You Letter, Antibiotic Education, Prescription Opioid Use. Follow up: Emergency Department; When: As needed; Reason: Worsening of condition. Follow up: Private Physician; When: 2 - 3 days; Reason: Recheck today's complaints, Continuance of care, Re-evaluation by your physician. Problem is new. Symptoms have improved. pm1
--- NOTE | 2019-07-02 10:41 | ER ---
Nurse's Notes [facility] Name: Tessa Delvalle Age: 63 yrs Sex: Female : 1955 Arrival Date: 07/02/2019 Time: 10:03 Bed 24 Private MD: Diagnosis: Tinea corporis Presentation: 07/02 10:08 Presenting complaint: Itchy rash under breasts, back, and chest x 3 weeks. Transition hb of care: patient was not received from another setting of care. Onset of symptoms is unknown. Risk Assessment: Do you want to hurt yourself or someone else? Patient reports no desire to harm self or others. Initial Sepsis Screen: Does the patient meet any 2 criteria? No. Patient's initial sepsis screen is negative. Does the patient have a suspected source of infection? No. Patient's initial sepsis screen is negative. Care prior to arrival: None. 10:08 Method Of Arrival: Ambulatory hb 10:08 Acuity: ASTON 4 hb Historical: - Allergies: 10:09 No Known Allergies; hb - Immunization history:: Adult Immunizations up to date. - Social history:: Smoking status: Patient/guardian denies using tobacco. - Ebola Screening: : No symptoms or risks identified at this time. Screenin:25 Abuse screen: Denies threats or abuse. Denies injuries from another. Nutritional aj1 screening: No deficits noted. Tuberculosis screening: No symptoms or risk factors identified. 11:03 Fall Risk None identified. aj1 Assessment: 10:25 General: Appears in no apparent distress. comfortable, Behavior is calm, cooperative, aj1 appropriate for age. Pain: Denies pain. Neuro: Level of Consciousness is awake, alert, obeys commands. Cardiovascular: Patient's skin is warm and dry. Respiratory: Airway is patent Respiratory effort is even, unlabored, Respiratory pattern is regular, symmetrical. GI: No signs and/or symptoms were reported involving the gastrointestinal system. : No signs and/or symptoms were reported regarding the genitourinary system. EENT: No signs and/or symptoms were reported regarding the EENT system. Derm: Rash noted that is itchy, on face and chest. Musculoskeletal: No signs and/or symptoms reported regarding the musculoskeletal system. Range of motion: intact in all extremities. Vital Signs: 10:09 BP 142 / 74; Pulse 71; Resp 16; Temp 97.2; Pulse Ox 100% on R/A; Weight 88.45 kg; hb Height 5 ft. 2 in. (157.48 cm); Pain 0/10; 10:09 Body Mass Index 35.67 (88.45 kg, 157.48 cm) hb ED Course: 10:03 Patient arrived in ED. mr 10:08 Triage completed. hb 10:09 Arm band placed on right wrist. hb 10:16 Josselin Rodriguez, RN is Primary Nurse. aj1 10:18 Darius Gregory NP is PHCP. pm1 10:19 Masoud Delaney MD is Attending Physician. pm1 10:25 Patient has correct armband on for positive identification. aj1 10:25 No provider procedures requiring assistance completed. aj1 11:03 Patient did not have IV access during this emergency room visit. aj1 Administered Medications: No medications were administered Outcome: 10:40 Discharge ordered by MD. pm1 11:03 Discharged to home ambulatory. aj1 11:03 Condition: good 11:03 Discharge instructions given to patient, Instructed on discharge instructions, follow up and referral plans. medication usage, Demonstrated understanding of instructions, follow-up care, medications, Prescriptions given X 1. 11:03 Patient left the ED. aj1 Signatures: Josselin Rodriguez, HAZEL RN aj1 Erika Ovalle mr Darius Gregory, LACE[employer] PRESS OPERATOR pm1 Ladonna Alba RN RN
[2019-07-02 11:09] VITALS: BP 142/74; TEMP 97.2; O2SAT 100
== END 2019-07-02 11:03 | disposition home or self-care (01) ==
LOC: ER 09:59
DX: B35.4 Tinea corporis (principal)
CPT/HCPCS: 99282

== ENCOUNTER 2020-03-27 10:56 | Emergency (ER) | payer OTHER ==
[2020-03-27] MEDS ORDERED: ACETAMINOPHEN 325 MG TABLET ONE (12:02)
--- NOTE | 2020-03-27 12:30 | RAD REPORT ---
EXAM DESCRIPTION: RAD - Hip Left 2 View - 03/27/2020 12:20 pm CLINICAL HISTORY: Left hip pain status post injury FINDINGS: No fracture or dislocation seen. Bones are osteoporotic If patient continues have symptoms to suggest an occult fracture then MRI would be recommended
--- NOTE | 2020-03-27 12:30 | RAD REPORT ---
EXAM DESCRIPTION: RAD - Pelvis - 03/27/2020 12:25 pm CLINICAL HISTORY: Pelvic pain status post injury FINDINGS: No fracture or dislocation is seen. Bones appear osteoporotic. If the patient continues to have symptoms to suggest an occult fracture then MRI would be recommended
--- NOTE | 2020-03-27 12:32 | RAD REPORT ---
EXAM DESCRIPTION: RAD - Knee Left 3 View - 03/27/2020 12:25 pm CLINICAL HISTORY: Left knee pain FINDINGS: No fracture or dislocation is seen. The bones are osteoporotic. Mild to moderate osteoarthritis medial compartment consisting of joint space narrowing and osteophyte s 9 millimeter area sclerosis is present within the distal femur. Most likely it is benign. It is recom mended that the patient have a follow up x-ray in 3 months to assess stability
--- NOTE | 2020-03-27 12:34 | RAD REPORT ---
EXAM DESCRIPTION: CT - Head Brain Wo Cont - 03/27/2020 12:24 pm CLINICAL HISTORY: Headache COMPARISON: 2010 TECHNIQUE: Computed axial tomography of the head was obtained. IV contrast was not requested. All CT scans are performed using dose optimization technique as appropriate and may include automated exposure control or mA/KV adjustment according to patient size. FINDINGS: An intracranial bleed is not seen . The ventricles are normal in caliber. Empty sella turcica. Small low-density area within the white matter of the right frontal lobe unchanged probably an area o f ischemia. No extra-axial fluid collection is noted. Fluid within the sinuses/ mastoids is not seen. IMPRESSION: Empty sella turcica No acute intracranial abnormality is seen. If patient's symptoms persist MRI of the brain would be r ecommended.
--- NOTE | 2020-03-27 13:34 | ER ---
Nurse's Notes [facility] Name: Tessa Delvalle Age: 64 yrs Sex: Female : 1955 Arrival Date: 03/27/2020 Time: 11:29 Bed 16 Private MD: Diagnosis: Pain in left leg;Headache Presentation: 03/27 11:40 Chief complaint: Left knee pain and swelling that radiates to left groin and outer hb thigh x 3 days. Also c/o chills and headache x 2 days. Coronavirus screen: Proceed with normal triage. Ebola Screen: No symptoms or risks identified at this time. Initial Sepsis Screen: Does the patient meet any 2 criteria? No. Patient's initial sepsis screen is negative. Does the patient have a suspected source of infection? No. Patient's initial sepsis screen is negative. Risk Assessment: Do you want to hurt yourself or someone else? Patient reports no desire to harm self or others. Onset of symptoms was March 24, 2020. 11:40 Method Of Arrival: Ambulatory hb 11:40 Acuity: ASTON 3 hb Triage Assessment: 12:21 General: Appears in no apparent distress. Behavior is calm, cooperative. ll1 Historical: - Allergies: 11:42 No Known Allergies; hb - PMHx: 11:42 breast cancer; CHEMO/RADIATION; hb - Immunization history:: Adult Immunizations up to date. - Social history:: Smoking status: Patient denies any tobacco usage or history of. Screenin:20 Abuse screen: Denies threats or abuse. Nutritional screening: No deficits noted. ll1 Tuberculosis screening: No symptoms or risk factors identified. Fall Risk No IV (0 pts). Ambulatory Aid- None/Bed Rest/Nurse Assist (0 pts). Gait- Weak (10 pts.). Mental Status- Oriented to own ability (0 pts). Total Robert Fall Scale indicates No Risk (0-24 pts). Assessment: 12:23 General: Appears in no apparent distress. Behavior is calm, cooperative. Pain: ll1 Complains of pain in left leg. Neuro: Level of Consciousness is awake, alert, obeys commands, Oriented to person, place, time, situation, Appropriate for age Machine Bookkeeper are equal bilaterally Moves all extremities. Full function Gait is steady, Speech is normal, Facial symmetry appears normal, Pupils are PERRLA, Reports headache. Cardiovascular: No deficits noted. Respiratory: No deficits noted. GI: No deficits noted. Musculoskeletal: Circulation, motion, and sensation intact. Capillary refill < 3 seconds, Reports pain in left leg. 13:20 Reassessment: Patient appears in no apparent distress at this time. No changes from ll1 previously documented assessment. Patient and/or family updated on plan of care and expected duration. Pain level reassessed. Patient is alert, oriented x 3, equal unlabored respirations, skin warm/dry/pink. Vital Signs: 11:40 BP 136 / 67; Pulse 67; Resp 16; Temp 98.2; Pulse Ox 97% on R/A; Weight 85.73 kg; Height hb 5 ft. 2 in. (157.48 cm); Pain 8/10; 13:51 BP 132 / 78; Pulse 62; Resp 17; Pulse Ox 99% ; Pain 3/10; ll1 11:40 Body Mass Index 34.57 (85.73 kg, 157.48 cm) hb ED Course: 11:29 Patient arrived in ED. am2 11:31 Lester Hudson PA is PHCP. [facility] 11:31 Macho Foster MD is Attending Physician. [facility] 11:33 Lyly Sepulveda, RN is Primary Nurse. 11:42 Triage completed. hb 11:42 Arm band placed on. hb 11:50 Primary Nurse role handed off by Lyly Sepulveda, RN ll1 11:50 Lorraine Gar, RN is Primary Nurse. ll1 12:22 Pelvis XRAY In Process Unspecified. EDMS 12:22 Hip Left 2 View XRAY In Process Unspecified. EDMS 12:22 Knee Left 3 View XRAY In Process Unspecified. EDMS 12:22 Patient has correct armband on for positive identification. Bed in low position. Call ll1 light in reach. Side rails up X 1. 12:24 CT Head Brain wo Cont In Process Unspecified. EDMS 13:27 US Extremity Venous Unilateral Ltd In Process Unspecified. EDMS 13:52 No provider procedures requiring assistance completed. Patient did not have IV access ll1 during this emergency room visit. Administered Medications: 12:00 Drug: Tylenol 650 mg Route: PO; ll1 13:53 Follow up: Response: No adverse reaction; RASS: Alert and Calm (0) ll1 Outcome: 13:34 Discharge ordered by MD. jmm 13:52 Discharged to home ambulatory. ll1 13:52 Condition: stable 13:52 Discharge instructions given to patient, Instructed on discharge instructions, follow up and referral plans. Demonstrated understanding of instructions, follow-up care. 13:53 Patient left the ED. ll1 Signatures: Dispatcher [employer] EDMS Lester Hudson PA PA jmm Baxter, Heather, Josefina Ricci RN, Amy RN Lorraine Deleon RN RN ll1
--- NOTE | 2020-03-27 13:34 | EDPHYS ---
Physician Documentation [facility] Name: Tessa Delvalle Age: 64 yrs Sex: Female : 1955 Arrival Date: 03/27/2020 Time: 11:29 Bed 16 Private MD: ED Physician Macho Foster HPI: 03/27 11:39 This 64 yrs old Female presents to ER via Ambulatory with complaints of Leg jmm Pain, Knee Pain, General Weakness. 11:39 The patient presents with pain. Onset: The symptoms/episode began/occurred gradually, 3 jmm day(s) ago. Modifying factors: The symptoms are alleviated by nothing. the symptoms are aggravated by nothing. This is a 64 year old female with no chronic medical conditions that presents to the ED with complaints of left hip and leg pain beginning approx 3 days ago. Patient states over the past 2 weeks her job has required increased standing. Patient denies other known injury. Patient also complains of a left temporal headache. Denies vision change. Patient has had similar headaches in the past. Gradual onset. . Historical: - Allergies: 11:42 No Known Allergies; hb - PMHx: 11:42 breast cancer; CHEMO/RADIATION; hb - Immunization history:: Adult Immunizations up to date. - Social history:: Smoking status: Patient denies any tobacco usage or history of. ROS: 11:39 Constitutional: Negative for fever, chills, and weight loss, Cardiovascular: Negative jmm for chest pain, palpitations, and edema, Respiratory: Negative for shortness of breath, cough, wheezing, and pleuritic chest pain. 11:39 Neuro: Positive for headache. Exam: 11:39 Constitutional: This is a well developed, well nourished patient who is awake, alert, jmm and in no acute distress. Head/Face: atraumatic. Eyes: EOMI, no conjunctival erythema appreciated ENT: Moist Mucus Membranes Neck: Trachea midline, Supple Chest/axilla: Normal chest wall appearance and motion. Cardiovascular: Regular rate and rhythm. No edema appreciated Respiratory: Normal respirations, no respiratory distress appreciated Abdomen/GI: Non distended, soft Back: Normal ROM Skin: General appearance color normal 11:39 Musculoskeletal/extremity: ROM: intact in all extremities, painful rom noted to the left hip, mild pain on palpation of the left greater trochanter, full rom appreciated to the left knee, compartments are soft, NVI. 11:39 Skin: Appearance: Color: normal in color. 11:39 Neuro: Orientation: is normal, Mentation: is normal, Memory: is normal. 11:39 Psych: Behavior/mood is pleasant, cooperative. Vital Signs: 11:40 BP 136 / 67; Pulse 67; Resp 16; Temp 98.2; Pulse Ox 97% on R/A; Weight 85.73 kg; Height hb 5 ft. 2 in. (157.48 cm); Pain 8/10; 13:51 BP 132 / 78; Pulse 62; Resp 17; Pulse Ox 99% ; Pain 3/10; ll1 11:40 Body Mass Index 34.57 (85.73 kg, 157.48 cm) hb MDM: 11:39 Patient medically screened. [facility] 13:33 Data reviewed: vital signs, nurses notes. Counseling: I had a detailed discussion with nam the patient and/or guardian regarding: the historical points, exam findings, and any diagnostic results supporting the discharge/admit diagnosis, the need for outpatient follow up, to return to the emergency department if symptoms worsen or persist or if there are any questions or concerns that arise at home. ED course: Patient is alert and non toxic in appearance in the ED. . 03/27 11:54 Order name: CT Head Brain wo Cont; Complete Time: 12:37 [facility] 03/27 11:54 Order name: Pelvis XRAY; Complete Time: 12:37 [facility] 03/27 11:54 Order name: Hip Left 2 View XRAY; Complete Time: 12:37 [facility] 03/27 11:54 Order name: Knee Left 3 View XRAY; Complete Time: 12:37 [facility] 03/27 12:37 Order name: US Extremity Venous Unilateral Ltd [facility] Administered Medications: 12:00 Drug: Tylenol 650 mg Route: PO; ll1 13:53 Follow up: Response: No adverse reaction; RASS: Alert and Calm (0) ll1 Disposition: 14:59 Co-signature as Attending Physician, Macho Foster MD I agree with the assessment and [facility] plan of care. Disposition: 03/27/20 13:34 Discharged to Home. Impression: Pain in left leg, Headache. - Condition is Stable. - Discharge Instructions: Bursitis, General Headache Without Cause, Hip Bursitis. - Medication Reconciliation Form, Thank You Letter, Antibiotic Education, Prescription Opioid Use, Work release form form. - Follow up: Private Physician; When: 2 - 3 days; Reason: Recheck today's complaints, Continuance of care, Re-evaluation by your physician. Signatures: Dispatcher [employer] EDMacho Sow MD MD cha Mickail, Joel, PA PA Ladonna Contreras RN RN Lorraine Gar RN RN ll1 Corrections: (The following items were deleted from the chart) 13:53 13:34 03/27/2020 13:34 Discharged to Home. Impression: Pain in left leg; Headache. ll1 Condition is Stable. Forms are Medication Reconciliation Form, Thank You Letter, Antibiotic Education, Prescription Opioid Use. Follow up: Private Physician; When: 2 - 3 days; Reason: Recheck today's complaints, Continuance of care, Re-evaluation by your physician. [facility] 15:03 11:39 This is a 64 year old female with no chronic medical conditions that presents to [facility] the ED with complaints of left hip and leg pain beginning approx 3 days ago. Patient states over the past 2 weeks her job has required increased standing. Patient denies other known injury. . [facility]
--- NOTE | 2020-03-27 13:57 | RAD REPORT ---
EXAM DESCRIPTION: US - Extremity Venous Uni Ltd - 03/27/2020 1:26 pm CLINICAL HISTORY: PAIN Leg swelling and edema. COMPARISON: EXT VENOUS W COMPRESSION SANDOR dated 12/05/2015 FINDINGS: Left lower extremity venous system was interrogated with Doppler technique. Normal flow, c ompressibility and augmentation was noted. There is no DVT present. IMPRESSION: No evidence of left lower extremity deep venous thrombosis.
[2020-03-27 14:02] VITALS: TEMP 98.2
[2020-03-27 14:04] VITALS: BP 132/78; O2SAT 99
== END 2020-03-27 13:53 | disposition home or self-care (01) ==
LOC: ER 10:56
DX: R51 Headache (principal); Z85.3 Personal history of malignant neoplasm of breast
CPT/HCPCS: 70450; 72170; 93971; 99283

== ENCOUNTER 2021-09-12 10:07 | Emergency (ER) | payer OTHER ==
[2021-09-12] MEDS ORDERED: HYDROCODONE/APAP 5/325 MG TAB ONE (11:22)
[2021-09-12] MEDS ORDERED: DIAZEPAM 5 MG TABLET ONE (11:22)
--- NOTE | 2021-09-12 13:28 | RAD REPORT ---
EXAM DESCRIPTION: RAD - Lumbar Spine 3 Views - 09/12/2021 12:25 pm CLINICAL HISTORY: back pain COMPARISON: [facility] Protocol dated 04/10/2019 FINDINGS: A three-view lumbar spine examination was performed. Lumbar bodies are normal in height. Approximately 7 mm anterior subluxation of L4 on L5 noted seconda ry to advanced facet joint degenerative change. This is not substantially different from 2019 compari son. Mild right convex scoliotic curvature is present. No lateral subluxation abnormality. No fractur e or acute bony process seen. No disc space narrowing. Mid and lower lumbar facet joint degenerative changes are present. No pars defects identified. IMPRESSION: No compression fracture or acute lumbar spine finding. Above detailed lumbar spine degenerative changes are not substantially different 2019.
[2021-09-12 16:33] LABS: Urine Bacteria <20 /HPF (<20)
--- NOTE | 2021-09-12 17:13 | EDPHYS ---
Physician Documentation [facility] Name: Tessa Delvalle Age: 66 yrs Sex: Female : 1955 Arrival Date: 09/12/2021 Time: 10:12 Bed 15 Private MD: Macho Méndez HPI: 09/12 10:25 This 66 yrs old Female presents to ER via Ambulatory with complaints of Low jmm Back Pain. 10:25 The patient presents with pain that is acute. Onset: The symptoms/episode jmm began/occurred acutely, 2 hour(s) ago. Modifying factors: The patient symptoms are alleviated by nothing, the patient symptoms are aggravated by any movement. This is a 66-year-old female with a history of breast cancer the presents emerged part with complaints of left lower back pain which radiates down her left leg. Patient denies numbness, incontinence difficulty with bowel movements. Patient does states she has had some burning urination. Historical: - Allergies: 10:29 No Known Allergies; jd3 - Home Meds: 10:29 None [Active]; jd3 - PMHx: 10:29 breast cancer; CHEMO/RADIATION; jd3 - PSHx: 10:29 breast surgery; jd3 10:30 hystorectomy; jd3 - Immunization history:: Adult Immunizations up to date. - Social history:: Smoking status: Patient denies any tobacco usage or history of. ROS: 10:25 Constitutional: Negative for fever, chills, and weight loss, Cardiovascular: Negative jmm for chest pain, palpitations, and edema, Respiratory: Negative for shortness of breath, cough, wheezing, and pleuritic chest pain. 10:25 Back: Positive for pain with movement. 10:25 All other systems are negative. Exam: 10:25 Constitutional: This is a well developed, well nourished patient who is awake, alert, jmm and in no acute distress. Head/Face: atraumatic. Eyes: EOMI, no conjunctival erythema appreciated ENT: Moist Mucus Membranes Neck: Trachea midline, Supple Chest/axilla: Normal chest wall appearance and motion. Cardiovascular: Regular rate and rhythm. No edema appreciated Respiratory: Normal respirations, no respiratory distress appreciated Abdomen/GI: Non distended, soft 10:25 Skin: General appearance color normal MS/ Extremity: Moves all extremities, no obvious deformities appreciated, no edema noted to the lower extremities Neuro: Awake and alert, normal gait Psych: Behavior is normal, Mood is normal, Patient is cooperative and pleasant 10:25 Back: pain, that is moderate, of the left low back. Vital Signs: 10:32 BP 146 / 77; Pulse 70; Resp 17 S; Temp 97.7(O); Pulse Ox 98% on R/A; Weight 90.26 kg jd3 (R); Height 5 ft. 2 in. (157.48 cm) (R); Pain 10/10; 11:27 BP 137 / 70; Pulse 72; Resp 16 S; Pulse Ox 97% on R/A; jd3 13:18 BP 131 / 61; Pulse 69; Resp 18 S; Pulse Ox 97% on R/A; jd3 14:56 BP 126 / 61; Pulse 71; Resp 16 S; Pulse Ox 97% on R/A; jd3 17:13 Pulse 77; Resp 16 S; Pulse Ox 98% on R/A; jd3 10:32 Body Mass Index 36.40 (90.26 kg, 157.48 cm) jd3 MDM: 10:25 Patient medically screened. alexis 17:12 Data reviewed: vital signs, nurses notes. Counseling: I had a detailed discussion with wally the patient and/or guardian regarding: the historical points, exam findings, and any diagnostic results supporting the discharge/admit diagnosis, radiology results, the need for outpatient follow up, to return to the emergency department if symptoms worsen or persist or if there are any questions or concerns that arise at home. 17:41 ED course: I do not suspect cauda equina or cord compression, extensor pollicis longus jmm intact bilaterally. Most likely musculoskeletal with some component of muscle spasm. UA did show some signs of infection so we will treat with oral antibiotics. Patient is otherwise given strict return precautions. 09/12 14:11 Order name: Urine Microscopic Only [facility] 09/12 14:12 Order name: Urine Microscopic Only; Complete Time: 17:06 [facility] 09/12 11:15 Order name: Lumbar Spine (3 Views) XRAY; Complete Time: 13:28 [facility] 09/12 16:34 Order name: Urine Culture [facility] 09/12 10:44 Order name: Urine Dipstick-Ancillary (obtain specimen); Complete Time: 10:47 [facility] Administered Medications: 11:02 Drug: [place] (HYDROcodone-acetaminophen) 5 mg-325 mg 1 tabs Route: PO; jd3 12:00 Follow up: Response: No adverse reaction; RASS: Alert and Calm (0) jd3 11:02 Drug: Valium (diazepam) 5 mg Route: PO; jd3 12:00 Follow up: Response: No adverse reaction; RASS: Alert and Calm (0) jd3 Disposition: 09/13 16:19 Co-signature as Attending Physician, Macho Foster MD I agree with the assessment and alexis plan of care. Disposition Summary: 09/12/21 17:13 Discharge Ordered Location: Home [facility] Condition: Stable [facility] Diagnosis - UTI/ Urinary tract infection, site not specified jmm - Strain of muscle, fascia and tendon of lower back [facility] Followup: [facility] - With: Private Physician - When: 2 - 3 days - Reason: Recheck today's complaints, Continuance of care, Re-evaluation by your physician Discharge Instructions: - Discharge Summary Sheet [facility] - Urinary Tract Infection, Adult jm - Low Back Sprain or Strain Rehab-SportsMed [facility] Forms: - Medication Reconciliation Form [facility] - Thank You Letter [facility] - Antibiotic Education [facility] - Prescription Opioid Use [facility] Prescriptions: - Cephalexin 500 mg Oral Capsule - take 1 capsule by ORAL route every 8 hours for 10 days; 30 capsule; Refills: 0, [facility] Product Selection Permitted - orphenadrine citrate 100 mg Oral Tablet Sustained Release - take 1 tablet by ORAL route 2 times per day As needed; 20 tablet; Refills: 0, [facility] Product Selection Permitted Signatures: Dispatcher [employer] Macho Osborne MD MD cha Mickail, Joel, PA PA Nelson Perez, RN RN jd3
--- NOTE | 2021-09-12 17:13 | ER ---
Nurse's Notes [facility] Name: Tessa Delvalle Age: 66 yrs Sex: Female : 1955 Arrival Date: 09/12/2021 Time: 10:12 Bed 15 Private MD: Diagnosis: UTI/ Urinary tract infection, site not specified;Strain of muscle, fascia and tendon of lower back Presentation: 09/12 10:28 Chief complaint: Patient states: "I was bending over to pick something up earlier today jd3 when I heard something pop and my back was hurting bad. it makes it hard to sit or lay down.". Coronavirus screen: Vaccine status: Patient reports receiving the 2nd dose of the covid vaccine. At this time, the client does not indicate any symptoms associated with coronavirus-19. Ebola Screen: Patient negative for fever greater than or equal to 101.5 degrees Fahrenheit, and additional compatible Ebola Virus Disease symptoms. Initial Sepsis Screen: Does the patient meet any 2 criteria? No. Patient's initial sepsis screen is negative. Does the patient have a suspected source of infection? No. Patient's initial sepsis screen is negative. Risk Assessment: Do you want to hurt yourself or someone else? Patient reports no desire to harm self or others. Onset of symptoms was September 12, 2021. 10:28 Method Of Arrival: Ambulatory jd3 10:28 Acuity: ASTON 3 jd3 Historical: - Allergies: 10:29 No Known Allergies; jd3 - Home Meds: 10:29 None [Active]; jd3 - PMHx: 10:29 breast cancer; CHEMO/RADIATION; jd3 - PSHx: 10:29 breast surgery; jd3 10:30 hystorectomy; jd3 - Immunization history:: Adult Immunizations up to date. - Social history:: Smoking status: Patient denies any tobacco usage or history of. Screenin:34 Abuse screen: Denies threats or abuse. Nutritional screening: No deficits noted. jd3 Tuberculosis screening: No symptoms or risk factors identified. Fall Risk Ambulatory Aid- None/Bed Rest/Nurse Assist (0 pts). Gait- Normal/Bed Rest/Wheelchair (0 pts) Mental Status- Oriented to own ability (0 pts). Total Robert Fall Scale indicates No Risk (0-24 pts). Assessment: 10:33 General: Appears in no apparent distress. comfortable, Behavior is calm, cooperative, jd3 appropriate for age. Pain: Complains of pain in back Quality of pain is described as aching, sharp. Neuro: Level of Consciousness is awake, alert, obeys commands, Oriented to person, place, time, situation. Cardiovascular: Denies chest pain, Capillary refill < 3 seconds Patient's skin is warm and dry. Respiratory: Airway is patent Respiratory effort is even, unlabored, Respiratory pattern is regular, symmetrical, Denies cough, shortness of breath. GI: No signs and/or symptoms were reported involving the gastrointestinal system. : No signs and/or symptoms were reported regarding the genitourinary system. EENT: No signs and/or symptoms were reported regarding the EENT system. Derm: Skin is intact, Skin is dry, Skin is normal, Skin temperature is warm. Musculoskeletal: Circulation, motion, and sensation intact. Range of motion: intact in all extremities. 11:27 Reassessment: Patient appears in no apparent distress at this time. No changes from jd3 previously documented assessment. Patient and/or family updated on plan of care and expected duration. Pain level reassessed. Patient is alert, oriented x 3, equal unlabored respirations, skin warm/dry/pink. 13:17 Reassessment: Patient appears in no apparent distress at this time. Patient and/or jd3 family updated on plan of care and expected duration. Pain level reassessed. Patient is alert, oriented x 3, equal unlabored respirations, skin warm/dry/pink. awaiting results Patient states feeling better. 14:55 Reassessment: Patient appears in no apparent distress at this time. No changes from jd3 previously documented assessment. Patient and/or family updated on plan of care and expected duration. Pain level reassessed. Patient is alert, oriented x 3, equal unlabored respirations, skin warm/dry/pink. awaiting results and disposition Patient states feeling better. 17:13 Reassessment: Patient appears in no apparent distress at this time. No changes from jd3 previously documented assessment. Patient and/or family updated on plan of care and expected duration. Pain level reassessed. Patient is alert, oriented x 3, equal unlabored respirations, skin warm/dry/pink. awaiting disposition. Vital Signs: 10:32 BP 146 / 77; Pulse 70; Resp 17 S; Temp 97.7(O); Pulse Ox 98% on R/A; Weight 90.26 kg jd3 (R); Height 5 ft. 2 in. (157.48 cm) (R); Pain 10/10; 11:27 BP 137 / 70; Pulse 72; Resp 16 S; Pulse Ox 97% on R/A; jd3 13:18 BP 131 / 61; Pulse 69; Resp 18 S; Pulse Ox 97% on R/A; jd3 14:56 BP 126 / 61; Pulse 71; Resp 16 S; Pulse Ox 97% on R/A; jd3 17:13 Pulse 77; Resp 16 S; Pulse Ox 98% on R/A; jd3 10:32 Body Mass Index 36.40 (90.26 kg, 157.48 cm) jd3 ED Course: 10:12 Patient arrived in ED. as 10:23 Lester Hudson PA is PHCP. [facility] 10:23 Macho Foster MD is Attending Physician. [facility] 10:29 Triage completed. jd3 10:33 Arm band placed on. jd3 10:34 Patient has correct armband on for positive identification. Bed in low position. Call j light in reach. Side rails up X 1. Adult w/ patient. Pulse ox on. NIBP on. 10:40 Nelson Landis, HAZEL is Primary Nurse. jd3 10:40 Nurse Practitioner and/or Physician Production Machine Shop Supervisor to see patient. jd3 10:54 Urine collected: clean catch specimen, cloudy. 5 12:25 Lumbar Spine (3 Views) XRAY In Process Unspecified. EDMS 17:13 No provider procedures requiring assistance completed. Patient did not have IV access jd3 during this emergency room visit. Administered Medications: 11:02 Drug: [place] (HYDROcodone-acetaminophen) 5 mg-325 mg 1 tabs Route: PO; jd3 12:00 Follow up: Response: No adverse reaction; RASS: Alert and Calm (0) jd3 11:02 Drug: Valium (diazepam) 5 mg Route: PO; jd3 12:00 Follow up: Response: No adverse reaction; RASS: Alert and Calm (0) jd3 Outcome: 17:13 Discharge ordered by . m 17:16 Condition: stable jd3 17:16 Discharge instructions given to patient, family, Instructed on discharge instructions, follow up and referral plans. medication usage, Demonstrated understanding of instructions, follow-up care, medications, Prescriptions given X 2. 17:28 Discharged to home ambulatory. jd3 17:30 Patient left the ED. jd3 Signatures: Dispatcher [employer] EDMS Lester Hudson PA PA jmm Martinez, Amelia as Martinez, Maria [facility] Nelson Landis RN RN jd3 Corrections: (The following items were deleted from the chart) 17:15 17:13 Reassessment: Patient appears in no apparent distress at this time. No changes jd3 from previously documented assessment. Patient and/or family updated on plan of care and expected duration. Pain level reassessed. Patient is alert, oriented x 3, equal unlabored respirations, skin warm/dry/pink. jd3 17:29 17:16 Discharge instructions given to patient, Instructed on discharge instructions, jd3 follow up and referral plans. Demonstrated understanding of instructions, follow-up care, jd3
[2021-09-12 17:34] VITALS: TEMP 97.7
[2021-09-12 17:38] VITALS: BP 126/61
[2021-09-12 17:39] VITALS: O2SAT 98
== END 2021-09-12 17:30 | disposition home or self-care (01) ==
LOC: ER 10:07
DX: S39.012A Strain of muscle, fascia and tendon of lower back, initial encounter (principal); N39.0 Urinary tract infection, site not specified; Z85.3 Personal history of malignant neoplasm of breast
CPT/HCPCS: 72100; 81015; 87086; 87088; 99284

== ENCOUNTER 2021-11-26 13:55 | Emergency (ER) | payer OTHER ==
--- OUTSIDE RECORDS SUMMARY | 2021-11-26 13:58 | XMS REPORT | Clinical Summary ---
:1955 Author Organization [facility] Address [address] [place] [address] Care Team Providers Name Role Phone Mckay Lerner MD Unavailable Cristy Gutierrez NP Primary Care Provider Paco Hall MD Unavailable Allergies No known active allergies Medications Medication Sig Dispensed Refills Start Date End Date Status calcium Take 2,000 0 Active carbonate/vitamin D3 Units by mouth (CALCIUM+D ORAL) daily. 1 tablet = Calcium 500 mg + D3 200 units cholecalciferol, Take 3,000 0 Ac tive vitamin D3, (VITAMIN Units by mouth D3) 3,000 units tab daily. tablet anastrozole (ARIMIDEX) Take 1 tablet 90 tablet 3 07/31/2020 Active 1 mg (1 mg) by mouth tabletIndications: daily. 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 Infiltrating duct carcinoma of overlapping sites of le ft female breast 05/18/2018 Cancer Staging: Clinical stage from 05/22: Stage IA (cT1b, cN0, cM0, G1, ER: Positive, ND: Negative, HER2: Negative) - Unsigned Osteoporosis Encounters Date Type Specialty Care Team Description 03/10/2021 Documentation Breast Medical [place], Oncology ARLYN Ervin 02/05/2021 Orders Only Infectious Diseases Yuli Don, SARS -CoV-2 vaccination 01/27/2021 Documentation Breast Medical [place], Oncology ARLYN Ervin after 11/26/2020 Surgical History Surgery Date Site/Laterality Comments HYSTERECTOMY VEIN SURGERY BLADDER REPAIR ND MASTECTOMY, PARTIAL 06/14/2018 Breast/Bilateral Procedur e: SEGMENTAL MASTECTOMY - SEE D LOC; Surgeon: Marivel Melgar MD; Location: MAIN O R; Service: BREAST ND BX/REMV,LYMPH NODE,DEEP 06/14/2018 Axilla/Left Proce dure: SENTINEL NODE AXILL BIOPSY - AXILLA; Surgeon: Mckay Mcintosh; Location: MAIN O [facility]; Service: BREAST Medical History Medical History Date Comments Diabetic - good control Borderline Urinary tract infectious disease Migraine Poor peripheral circulation Bladder dysfunction "I have a bladder me sh" Postoperative nausea and vomiting Osteoporosis Breast cancer 04/2018 Family History Medical History Relation Name Comments Colon cancer Brother Relation Name Status Comments Brother Social History Tobacco Use Types Packs/Day Years Used Date Never Smoker Smokeless Tobacco: Never Used Alcohol Use Standard Drinks/Week Comments No 0 (1 standard drink = 0.6 oz pure alcoho l) Sex Assigned at Date Recorded Not on file Obstetrics History Para Term AB IAB SAB Ectopic Multiple Living Live Births 2 2 2 Date Outcome GA Total Labor/2nd/3rd Weight Sex Delivery Anes PTL Vane A 1 A5 Name Clin Labor Term Term Comments Menarche: 11 years old Parity: 22 years old Breastfed: Approximately 6 months Oral Contraceptives: N/A Menopause: Hysterectomy 12 years ago Hormone Replacement Therapy: Last Filed Vital Signs Not on file Plan of Treatment Health Maintenance Due Date Last Done Comments COVID-19 Vaccination (1) 1967 Results Not on fileafter 11/26/2020 Insurance Payer Benefit Plan / Subscriber ID Effective Dates Phone Addre ss Type Group MEDICARE MEDICARE PART [id number] 2020-[place] [phone] [facility] Medicare A AND B t 2 SOLUTIONS [address] [place] [address] Advance Directives Type Date Recorded Patient Cardiology Consultant Explanati on Advance Directives: 07/17/2018 12:00 AM Directive to Physicians Living Will and Family or Surrogates-Livin g Will Advance Directives: 07/17/2018 12:00 AM Medical Ha kamara of Medical Power of Auto Former Machine Operator Auto Former Machine Operator Care Teams Skiver Uppers Or Linings Relationship Specialty Start Date End Date Petra Gutierrez PCP - General Breast Medical Oncology 04/14/20 LACEY Muniz [address] [place] [id number] Susana Lerner, Physician Endocrinology 03/26/[address] [place] [id number] Rebekah Hall, Consulting Physician Breast Medical Oncology 02/26 02/[address] [place] [id number]
--- OUTSIDE RECORDS SUMMARY | 2021-11-26 13:59 | XMS REPORT | Continuity of Care Document ---
:1955 Author Organization [facility] t Address [address] [place] [address] Care Team Providers Name Role Phone Azra Pelaez DO Primary Care Physician [phone] Forrest Attending Clinician Unavailable Haleigh Pelaez Attending Clinician Unavailable Woody STODDARD Attending Clinician Florencia NULL Attending Clinician Edis Attending Clinician Unavailable Lab, Fam Pob I Attending Clinician Unavailable Inocente CIFUENTES Attending Clinician Unavailable Gualberto Attending Clinician Unavailable Haleigh Pelaez Admitting Clinician Unavailable Payers Payer Name Policy Type Policy Effective Date Expiration Date Sour ce Number MEDICAREMEDICARE PART [id number] 2020 MD Cristian Palmer AND 00:00:00 [id number] 2019-P [id number] [id number] CIGNA II [id number] 2013 00:00:00 Problems Condition Condition Condition Status Onset Resolution Last Treating Co mments Source Name Details Category Date Date Treatment Clinician Date M50.10 - Diagnosis Active 2019-112020-10-04 M emoria CERVICAL - 09:26:00 l DISC M50.10 - 00:01: Pepe cody DISORDER W CERVICAL 00 RADIC DISC DISORDER W RADIC Active 09/29/2020 MH OPID Trace M50.13 - Diagnosis Active 2020-08-17 M emoria CERVICAL 05-27 19:03:00 l DISC M50.13 - 00:01: Pepe cody DISORDER W CERVICAL 00 RADIC DISC DISORDER W RADIC Active 05/27/2020 [facility] OPID [place] Cystocele Cystocele Disease Active MD 3-04 Anderso 00:00: n 00 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:00: n 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 00:00: n of of 00 overlappin overlappin g sites of g sites of left left female female breast breast Osteoporos Osteoporos Disease Active M D is is Anderso n Dyspnea Problem Active 2020-10-06 Gautam edelmira (finding) 23:20:24 l Dyspnea [place] (finding) Active Problem 10/06/2020 [facility] [place] Urinary Problem Active 2020-10-06 Gautam edelmira incontinen 23:20:24 l ce Urinary Russ (finding) incontinen ce (finding) [facility]lipid Problem Resolve 2020-10-06 Memoria emia d 23:20:24 l (disorder) Pepe n Hyperlipid emia (disorder) Resolved Problem 10/06/2020 OPID [place] Bronchitis Problem Active 2020-10-06 M emoria (disorder) 23:20:24 l Russ Bronchitis (disorder) Active Problem 10/06/2020 OPID [place] Morbid Problem Active 2020-10-06 Memor ia obesity 23:20:24 l (disorder) Morbid Herm elise obesity (disorder) Active Problem 10/06/2020 OPID [place] Pneumonia Problem Active 2020-10-06 Me moria (disorder) 23:20:24 l Russ Pneumonia (disorder) Active Problem 10/06/2020 OPID [place] No known No known Disease Metho di active active st problems problems Hospit a l Allergies, Adverse Reactions, Alerts Allergy Allergy Status Severity Reaction(s) Onset Inactive Treating Comm ents Source Name Type Date Date Clinician TAPE DA Active U RASH-UNKNOWN [facility] ,REDNESS 5-31 Clear 00:00: Ramos 00 [facility] NO KNOWN Drug Active Univers ALLERGIE Class ity of S [facility] Family History Family Member Diagnosis Comments Start Date Stop Date Source Natural father Heart disease [facility] Natural brother Colon cancer MD Daniel lucas Natural brother Cancer [facility] Natural mother Diabetes [facility] Social History Social Habit Start Date Stop Date Quantity Comments Source History [facility] Drinks History [facility] Alcohol intake 2020-02-14 2020-02-14 Current MD Andrew cody 00:00:00 00:00:00 non-drinker of alcohol (finding) History SDOH 2019-10-05 2019-10-05 1 [facility] 00:[facility]:00 [facility]:00 [facility]osp[facility] Tobacco use and 2018-05-22 2018-05-22 Smokeless tobacco Cristian exposure 00:00:00 00:00:00 non-user Social History 2018-05-11 2018-05-11 [facility] 19:30:45 19:30:45 Sex Assigned At [birth year] MD Sky on 00:00:00 00:00:00 Smoking Status Start Date Stop Date Source Never smoker [facility] Medications Ordered Filled Start Stop Current Ordering Indication Dosage Frequency Signature Comments Components Source Medication Medication Date Date Medication? Clinician (SIG) Name Name calcium 2019-11 Yes 2000U Take 2,000 MD carbonate/v 2-30 Units by Daniel rso itamin D3 02:28: mouth n (CALCIUM+D 35 daily. 1 ORAL) tablet = Calcium 500 mg + D3 200 units cholecalcif 2019-11 Yes 3000U Take 3,000 MD digna, 2-30 Units by Andrew vitamin D3, 02:28: mouth n (VITAMIN 35 daily. D3) 3,000 units tab tablet anastrozole Yes Cystocele, 1mg Take 1 MD (ARIMIDEX) 07-31 not tablet (1 Daniel rso 1 mg tablet 00:00: otherwise mg) by n 00 specified mouth daily. levothyroxi 2020- No Hypothyroid 50ug Take 1 MD saenz 04-14 ism, not tablet (50 Daniel rso (Synthroid) 00:00: 04:59 otherwise mcg) by n 50 mcg 00 :00 specified mouth tablet daily. No known No [facility] Procedures Procedure Date / Time Performed Performing Clinician [facility] e Colonoscopy 2017-09-28 00:00:00 [facility] Sacrocolpopexy 2012-12-20 06:00:00 [facility] Abdominal hysterectomy [facility] Biopsy of breast [facility] n Excision of cyst of breast [facility] ial Russ Suspension of bladder [facility] Plan of Care Planned Activity Planned Date Details Comments Source Future Scheduled 1967 COVID-19 Vaccination MD Foster Test 00:00:00 (1) [code = COVID-19 Vaccination (1)] Future Scheduled COVID-19 VACCINE (1) [facility] Test [code = COVID-19 VACCINE (1)] Future Scheduled Hepatitis C screening [facility] Test (procedure) [code = 491192336] Future Scheduled Screening for [facility] Test malignant neoplasm of cervix (procedure) [code = 466041584] Future Scheduled BREAST CANCER [facility] Test SCREENING [code = BREAST CANCER SCREENING] Future Scheduled COLONOSCOPY SCREENING [facility] Test [code = COLONOSCOPY SCREENING] Future Scheduled SHINGLES VACCINES (#1) [facility] [code = SHINGLES VACCINES (#1)] Future Scheduled 65+ [facility]OCO[facility] VACCINE (1 of 1 - PPSV23) [code = 65+ PNEUMOCOCCAL VACCINE (1 of 1 - PPSV23)] Future Scheduled INFLUENZA [facility]ACCINE [facility] [code = INFLUENZA VACCINE] Encounters Start End Encounter Admission Attending Care Care Encounter Source Date/Time Date/Time Type Type Clinicians Facility Department ID 2021-02-03 Inpatient HCAPM JESUS [id number] [facility] 11:09:00 [id number] [facility] 2020-05-24 Inpatient HCAPM JESUS [id number] [facility] 11:12:00 [id number] [facility] 2021-11-25 2021-11-25 Emergency EM JamesjilPaco HCAPM EJSUS [id number] [facility] 12:52:00 14:50:00 [id number] [facility] 2021-11-25 2021-11-25 Emergency EM Paco [place] HCAPM HCAPM [id number] [id number] [facility] 12:52:00 14:50:00 98 [facility] 2021-07-03 2021-07-03 Outpatient RUSTY Pelaez HCAPM CESARIO [id number] 1-20 [facility] 08:00:00 08:00:00 Tevin [id number] [facility] 2021-02-03 2021-02-03 Outpatient ROMAN RandhawaCL LABO [id number] [facility] 18:51:00 18:51:00 Andrew [id number] [facility] 2020-12-30 2020-12-30 Outpatient RUSTY Pelaez HCAPM RADI [id number] [id number] [facility] 16:35:00 16:35:00 Tevin [id number] [facility] 2020-11-26 2020-11-26 Laboratory Lab, [facility] [id number] 16:29:14 16:49:[address] [facility] [id number] [place] [id number] Professio [id number] nal [address] 2020-11-26 2020-11-26 Outpatient R ESAU, [facility] [id number] Univers 16:40:00 16:40:00 JAMIE van [facility] 2020-10-04 2020-10-05 Outpt Diag nullFlavo [facility] [id number] Memoria 15:16:00 05:59:00 Services r Outpatient 02 l [facility] 2020-05-24 2020-05-24 Outpatient ROMAN BurciagaCL LABO [id number] [facility] 23:56:00 23:56:00 Rehana [id number] Gayle r [facility] 2020-05-23 2020-05-24 Outpt Diag nullFlavo [facility] [id number] Memoria 19:31:00 04:59:00 Services r Outpatient 00 l [facility] Results Test Description Test Time Test Comments Results Result Comments Source Covid 19 InHouse NTX 2021-02-04 13:46:00 Test Item Value Reference Range Interpretation Comme nts Covid 19 InHouse NTX (test Negative Negative A negative result does not preclude the code = [id number]) SARS-CO V-2 viralinfection and should not be used as the sole basis forpatient karlos gement decisions. Negative result s must becombined with clinical observ ations, patient history, andepidemiologi gaudencio information. Viral levels in clini calsamples below the detection limit of the assay could lead tonegative resu lts. This test was performed using the Re5ult SmartTM COVID-19 PCRass ay. This test was developed and i ts performancechar acteristics were determined by [facility]. Thi s test has notbeen FDA cleared or appr aysha. This test is authorized by t heFDA under Emergency Use Authorizati on(EUA). The EUA willremain in e ffect unless it is terminated or r evoked by FDA . Testing parameters have not been validated for screeningasympt omatic patients. This test was valida marilyn according to the FDA's guidanced ocument "Policy for Diagnostics vincent ting in LaboratoriesCer tified to Perform High Complexity Test ing under CLIA". Is the patient going to be discharged home? YIs the patient going to be discharged home? YFirst test? NoEmployed in Healthcare? NoSymptomatic as defined by CDC? YesDate of Symptom Onset: [id number] due to COVID? NoIn ICU due to COVID? NoResident in a congregate care setting? No? NoAge at collection: PRIMO RFLX MICR CULT IF [id number] 12:22:00 Test Item Value Reference Range Interpretation Comments UA COLOR (test code = YELLOW discript YEL/STRAW COLU) UA APPEARANCE (test code CLOUDY discript CLEAR A = APPU) UA GLUCOSE DIPSTICK (test NEGATIVE mg/dL NEG code = DGLUU) UA BILIRUBIN DIPSTICK NEGATIVE mg/dL NEG (test code = BILU) UA KETONE DIPSTICK (test NEGATIVE mg/dL NEG code = KETU) UA SPECIFIC GRAVITY (test >=1.030 SG 1.005-1.030 A code = SGU) UA BLOOD DIPSTICK (test 3+ mg/DL NEG A code = ESTRELLA) UA PH DIPSTICK (test code 5.5 pH UNITS 5.0-7.0 = KACEY) UA PROTEIN DIPSTICK (test 1+ mg/dL NEG A code = PROU) UA UROBILINIOGEN DIPSTICK 0.2 mg/dL <2.0 (test code = URO) UA NITRITE DIPSTICK (test NEGATIVE SCREEN NEG code = CHANA) UA LEUKOCYTE ESTERASE 2+ Leuk/mcL NEGATIVE A DIPSTICK (test code = LEUU) UA WBC (test code = WBCU) 40-50 #WBC/HPF 0-3 A UA RBC (test code = RBCU) 10-20 #RBC/HPF 0-3 A UA BACTERIA (test code = 1+ /HPF NONE-TRACE A BACU) UA SQUAMOUS CELLS (test 1+ /HPF NONE A code = SQU) UA CULTURE NEEDED? (test YES,WBC>10 & EPI<25 Culture CHK code = UACULT) Criteria Indication for culture: Dysuria/FrequencyUA RFLX MICR CULT IF INDICATED 2021-02-03 12:12:00 Test Item Value Reference Range Interpretation Comments UA COLOR (test code = COLU) YELLOW discript YEL/STRAW UA APPEARANCE (test code = CLOUDY discript CLEAR A APPU) UA GLUCOSE DIPSTICK (test NEGATIVE mg/dL NEG code = DGLUU) UA BILIRUBIN DIPSTICK (test NEGATIVE mg/dL NEG code = BILU) UA KETONE DIPSTICK (test code NEGATIVE mg/dL NEG = KETU) UA SPECIFIC GRAVITY (test >=1.030 SG 1.005-1.030 A code = SGU) UA BLOOD DIPSTICK (test code 3+ mg/DL NEG A = ESTRELLA) UA PH DIPSTICK (test code = 5.5 pH UNITS 5.0-7.0 KACEY) UA PROTEIN DIPSTICK (test 1+ mg/dL NEG A code = PROU) UA UROBILINIOGEN DIPSTICK 0.2 mg/dL <2.0 (test code = URO) UA NITRITE DIPSTICK (test NEGATIVE SCREEN NEG code = CHANA) UA LEUKOCYTE ESTERASE 2+ Leuk/mcL NEGATIVE A DIPSTICK (test code = LEUU) UA CULTURE NEEDED? (test code Criteria Culture CHK = UACULT) Indication for culture: Dysuria/Frequency- CT HEAD/BRAIN W/O [id number] 17:12:00[facility] : 1955 Sex: F Name: BOLA DELVALLE [facility] : 1955 Age/S: 65 / F [id number] [place] Unit #: [id number] Loc: [place] [address] Phys: Tevin Pelaez DO Acct: [id number] Dis Date: Status: REG CLI PHONE #: [phone] Exam Date: 12/30/2020 1656 FAX #: Reason: TENSION TYPE HEADACHE EXAMS: CPT: [id number] CT HEAD/BRAIN W/O CONT [id number] EXAM: - CT HEAD/BRAIN W/O CONT Location code:C3 HISTORY: TENSION TYPE HEADACHE TECHNIQUE: Axial CT images from the skull base to the vertex without intravenous contrast. Coronal and sagittal reformatted images were created from the data set. One or more of the following dose reduction techniques were used: Automated exposure co ntrol, adjustment of the mA and/or kV according to patient size, and/or utilization of iterative reconstruction technique. DLP: 804 mGy-cm. COMPARISON: 05/20/2016 FINDINGS: Intracranial: No abnormal brain parenchymal density. No evidence of acute infarction, intracranial hemorrhage, mass or mass effect, or abnormal extra-axial fluid collection. 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 The ventricular system and sulci are age appropriate. The density in the larger dural sinuses is grossly normal.Bones: There is no evidence of acute displaced calvarial fracture. Sinuses: The visualized portions of the paranasal sinuses demonstrate no significant opacification.The mastoid air cells are clear. Orbits/Soft Tissues: The visualized orbits show no significantabnormalities. The visualized soft tissues are unremarkable. IMPRESSION: 1. No CT evidence of acute intracranial abnormality. at 1712 Reported and signed by: Broderick Torres MD PAGE 1Signed Report (CONTINUED) Name: BOLA DELVALLE [place] : 1955 Age/S: 65 / F [address] [place] Unit #: [id number] Loc: [place] [address] Phys: Tevin Pelaez DO Acct: [id number] Dis Date: Status: REG CLI PHONE #: [phone] Exam Date: 12/30/2020 1655 FAX #: Reason: TENSION TYPE HEADACHE EXAMS: CPT: [id number] CT HEAD/BRAIN W/O CONT [id number] <Continued> CC: Tevin Pelaez DO Technologist:Sulma Walker, RT(R)(CT)(MRI) CTDI: DLP: Trnscb Date/Time: 12/30/2020 (1711) [email or web address] Orig Print D/T: S: 12/30/2020 (171) PAGE 2 Signed ReportNovel Coronavirus 2019 [id number] 09:51:00 Test Item Value Reference Range Interpretation Comments Novel Coronavirus Negative Negative THIS TEST PROCEDURE HAS 2018 nCoV (test code THE SCOTT LOWING = COVID19) LIMITATIONS: TH E DETECTION OF RAL NUCLEIC ACID IS DEPENDENT UPON PROPERSPECIMEN COLLECTION, SELF DLING, TRANSPORTATION, STORAGE, ANDPREPARATION. FAILURE TO OBSERVE PROP ER PROCEDURES IN A RI ONEOF THESE STEPS CAN LEAD TO INCORRECT RESUL TS WITH THE RISKOF FALS E POSITIVE OR FAL SE NEGATIVE VALUES . SPECIMEN HAS TO BE STORED AT 2 - 8 DEGREE CELSIUS NO MORE THAN 72 HOURS. ALTRU DX COVID- 19 TEST IS A QUALITATIV E TEST AND DOES NOTPRO VIDE A QUANTITATIVE VA LUE FOR THE ORGANISM. R ESULTS FROM THIS TEST MUST BE CORRELATED WITH THE CLINICALHISTORY , EPIDEMIOLOGICAL DATA, AND OTHER DATA AVAILABLE TOTHE CLINICIAN EVALUATING THE PATIENT. INTERFERENCE FR OM SUBSTANCES THAT WERE NOT EVALUATED COULD LEAD TO ERRONEOUS RESUL TS. A NEGATIVE RESULT DOES NOT EXCLUDE THE POS SIBILITY OFCOVID-19 INFE CTION. FALSE NEGATIVE TEST RESULTS MAY OCC URDUE TO THE PRESENCE OF INHIBITORS. VINCENT T RESULTS MAY ALSO BEAFFE CTED BY LEVELS OF ORGAN ISM IN THE SPECIMEN TH AT AREBELOW THRESH OLD DETECTION FOR T HE TEST. NEGATIVE RESULT SSHOULD NOT BE USED THE SOLE BASIS FOR DIAGNOSIS,TREAT MENT, OR OTHER PATIENT M ANAGEMENT DECISIONS. Does patient have the clinical criteria consistent with COVID-19? YIs the patient going to be discharged home? Y
--- NOTE | 2021-11-26 14:31 | RAD REPORT ---
EXAM DESCRIPTION: Sharon Single View11/26/2021 2:25 pm CLINICAL HISTORY: Chest pain COMPARISON: 2018 FINDINGS: The lungs appear clear of acute infiltrate. The heart is normal size IMPRESSION: No acute abnormalities displayed
--- NOTE | 2021-11-26 14:31 | RAD REPORT ---
EXAM DESCRIPTION: CT - Ct Stroke Brain Wo Cont - 11/26/2021 2:13 pm CLINICAL HISTORY: numbness COMPARISON: 2019 TECHNIQUE: Computed axial tomography of the head was obtained. All CT scans are performed using dose optimization technique as appropriate and may include automated exposure control or mA/KV adjustment according to patient size. FINDINGS: An intracranial bleed is not seen . The ventricles are normal in caliber. No extra-axial fluid collection is noted. Mild low-density within periventricular, deep and subcortical white matter likely ischemic changes se condary to small vessel disease. Empty sella turcica Mild ethmoid and maxillary sinusitis IMPRESSION: No acute intracranial abnormality is seen. If patient's symptoms persist MRI of the bra in would be recommended. Dr Foster of the emergency room was notified at 2:25 p.m. November 26, 2021
[2021-11-26 19:18] LABS: Absolute Lymphocytes (CBC) 1.8 K/uL (0.7-4.9); Hematocrit 42.4 % (36.0-45.0); Lymphocytes % 36.2 % (15.3-44.8); MPV 7.9 fL (7.6-11.3)
[2021-11-26 19:23] LABS: Protime INR 0.96
[2021-11-26] MEDS ORDERED: HYDROCODONE/CHLORPHEN 5 ML/OSYR ONE (21:45)
--- NOTE | 2021-11-26 22:33 | EDPHYS ---
Physician Documentation [facility] Name: Tessa Delvalle Age: 66 yrs Sex: Female : 1955 Arrival Date: 11/26/2021 Time: 13:56 Bed 10 Private MD: ED Physician Mk Howe HPI: 11/26 21:11 This 66 yrs old Female presents to ER via Ambulatory with complaints of Chest pm1 Pain, Numbness Of Hand. 21:11 The patient or guardian reports cough, with productive sputum. Onset: The pm1 symptoms/episode began/occurred 4 day(s) ago. Severity of symptoms: in the emergency department the symptoms have improved. Modifying factors: The symptoms are alleviated by nothing, the symptoms are aggravated by nothing. Associated signs and symptoms: Pertinent negatives: fever, Shortness of breath. The patient has not experienced similar symptoms in the past. The patient has not recently seen a physician. Patient presenting to the ER with multiple complaints. 4 days ago patient reports headache to left side of head with numbness to the hand. Headache and numbness to the hand resolved on that day. Patient also with cough 4 days ago that is worse at night. Patient reports chest pain onset yesterday with coughing. Patient took Covid test yesterday and has results with her that are negative. Historical: - Allergies: 14:03 No Known Allergies; sears - PMHx: 14:03 breast cancer; CHEMO/RADIATION; sears - Immunization history:: Adult Immunizations up to date. - Social history:: Smoking status: Patient denies any tobacco usage or history of. ROS: 21:11 Constitutional: Negative for fever, chills, and weight loss. pm1 21:11 Abdomen/GI: Negative for abdominal pain, nausea, vomiting, diarrhea, and constipation, Back: Negative for injury and pain, MS/Extremity: Negative for injury and deformity, Skin: Negative for injury, rash, and discoloration, Neuro: Negative for headache, weakness, numbness, tingling, and seizure. Headache and numbness to left hand resolved 4 days 21:11 Cardiovascular: Positive for chest pain, Negative for edema, palpitations. 21:11 Respiratory: Positive for cough, Negative for shortness of breath, wheezing. 21:11 All other systems are negative. Exam: 21:11 Constitutional: This is a well developed, well nourished patient who is awake, alert, pm1 and in no acute distress. Head/Face: Normocephalic, atraumatic. 21:11 Skin: Warm, dry with normal turgor. Normal color with no rashes, no lesions, and no evidence of cellulitis. MS/ Extremity: Pulses equal, no cyanosis. Neurovascular intact. Full, normal range of motion. 21:11 Eyes: Exam is negative for acute changes, Periorbital structures: appear normal, Extraocular movements: no acute changes, Conjunctiva: no acute changes, no injection, Sclera: no acute changes, icterus, is not appreciated. 21:11 ENT: Exam is negative for acute changes, Mouth: no acute changes, Lips: normal, moist, Oral mucosa: normal, pink and intact, moist. 21:11 Chest/axilla: Exam negative for acute changes, Inspection: normal, Palpation: is normal, no crepitus, no tenderness. 21:11 Cardiovascular: Exam negative for acute changes, Rate: normal, Rhythm: regular, Pulses: no pulse deficits are appreciated, Edema: is not appreciated. 21:11 Respiratory: Exam negative for acute changes, respiratory distress, shortness of breath, Breath sounds: are clear throughout. 21:11 Abdomen/GI: Exam negative for acute changes, Inspection: abdomen appears normal, Palpation: abdomen is soft and non-tender, in all quadrants. 21:11 Neuro: Exam negative for acute changes, Orientation: is normal, Mentation: is normal, Motor: is normal, moves all fours. Vital Signs: 14:01 BP 144 / 94; Pulse 80; Resp 18; Temp 97.4(O); Pulse Ox 99% ; Weight 81.65 kg; Height 5 sears ft. 2 in. (157.48 cm); 14:01 Body Mass Index 32.92 (81.65 kg, 157.48 cm) sears MDM: 21:11 Patient medically screened. pm1 22:31 Data reviewed: vital signs. Data interpreted: Pulse oximetry: on room air is 99 %. pm1 Interpretation: normal. Counseling: I had a detailed discussion with the patient and/or guardian regarding: the historical points, exam findings, and any diagnostic results supporting the discharge/admit diagnosis, lab results, radiology results, the need for outpatient follow up, to return to the emergency department if symptoms worsen or persist or if there are any questions or concerns that arise at home. 11/26 14:01 Order name: Basic Metabolic Panel; Complete Time: 20:52 11/26 14:01 Order name: CBC with Diff; Complete Time: 20:52 11/26 14:01 Order name: Protime (+inr); Complete Time: 20:52 11/26 14:01 Order name: Ptt, Activated; Complete Time: 20:52 11/26 21:12 Order name: Troponin (emerg Dept Use Only); Complete Time: 22:30 pm1 11/26 21:12 Order name: Flu; Complete Time: 22:30 pm1 11/26 14:01 Order name: CT Stroke Brain w/o Contrast; Complete Time: 20:52 11/26 14:01 Order name: Stroke CXR 1 View; Complete Time: 20:52 11/26 14:01 Order name: EKG; Complete Time: 14:02 11/26 14:01 Order name: Accucheck 11/26 14:01 Order name: Cardiac monitoring 11/26 14:01 Order name: EKG - Nurse/Tech 11/26 14:01 Order name: IV Saline Lock 11/26 14:01 Order name: Labs collected and sent 11/26 14:01 Order name: NPO 11/26 14:01 Order name: O2 Per Protocol 11/26 14:01 Order name: O2 Sat Monitoring 11/26 14:01 Order name: Stroke Swallow Screen Administered Medications: 21:51 Drug: Tussionex Pennkinetic ER (chlorpheniramine-hydrocodone) Suspension 5 ml Route: PO;bb Disposition: 11/27 06:15 Co-signature as Attending Physician, Mk Howe MD. [email or web address] Disposition Summary: 11/26/21 22:32 Discharge Ordered Location: Home pm1 Problem: new pm1 Symptoms: have improved pm1 Condition: Stable pm1 Diagnosis - Chest pain, unspecified pm1 - Acute upper respiratory infection, unspecified pm1 - Paresthesia of skin pm1 Followup: pm1 - With: Emergency Department - When: As needed - Reason: Worsening of condition Followup: pm1 - With: Private Physician - When: 2 - 3 days - Reason: Recheck today's complaints, Continuance of care, Re-evaluation by your physician Discharge Instructions: - Discharge Summary Sheet pm1 - Nonspecific Chest Pain, Adult pm1 - Paresthesia pm1 - Upper Respiratory Infection, Adult pm1 Forms: - Medication Reconciliation Form pm1 - Thank You Letter pm1 - Antibiotic Education pm1 - Prescription Opioid Use pm1 Prescriptions: - Guaifenesin AC 10-100 mg/5 mL Oral Liquid - take 10 milliliters by ORAL route every 4 hours As needed; 240 milliliter; pm1 Refills: 0, Product Selection Permitted Signatures: Dispatcher [employer] Nneka Mixon, RN RN bb Darius Gregory NP [employer]ATION SAF[employer]Y OFFICER pm1 Mk Howe MD MD [email or web address] Ladonna Greenberg RN RN sears Corrections: (The following items were deleted from the chart) 11/26 14:03 14:03 PSHx: breast surgery; sears sears 14: 14:03 PSHx: hystorectomy; sears sears
--- NOTE | 2021-11-26 22:33 | ER ---
Nurse's Notes [facility] Name: Tessa Delvalle Age: 66 yrs Sex: Female : 1955 Arrival Date: 11/26/2021 Time: 13:56 Bed 10 Private MD: Diagnosis: Chest pain, unspecified;Acute upper respiratory infection, unspecified;Paresthesia of skin Presentation: 11/26 14:01 Chief complaint: Patient states: numbness to left arm and hand since 11-25-2021, sears headaches, chest pain. Coronavirus screen: Vaccine status: Patient reports receiving the 2nd dose of the covid vaccine. Ebola Screen: Patient denies travel to an Ebola-affected area in the 21 days before illness onset. Initial Sepsis Screen: Does the patient meet any 2 criteria? No. Patient's initial sepsis screen is negative. Does the patient have a suspected source of infection? No. Patient's initial sepsis screen is negative. Risk Assessment: Do you want to hurt yourself or someone else? Patient reports no desire to harm self or others. Onset of symptoms was November 25, 2021. 14:01 Method Of Arrival: Ambulatory sears 14:01 Acuity: ASTON 3 sears Triage Assessment: 14:03 General: Appears in no apparent distress. Behavior is calm, cooperative. Pain: sears Complains of pain in chest. Cardiovascular: Reports chest pain, fatigue. Historical: - Allergies: 14:03 No Known Allergies; sears - PMHx: 14:03 breast cancer; CHEMO/RADIATION; sears - Immunization history:: Adult Immunizations up to date. - Social history:: Smoking status: Patient denies any tobacco usage or history of. Screenin:00 Abuse screen: Denies threats or abuse. Nutritional screening: No deficits noted. bb Tuberculosis screening: No symptoms or risk factors identified. Fall Risk None identified. Assessment: 21:00 General: Appears in no apparent distress. Behavior is calm, cooperative. Pain: bb Complains of pain in chest. Neuro: Level of Consciousness is awake, alert, obeys commands, Oriented to person, place, time, situation. Cardiovascular: Capillary refill < 3 seconds Patient's skin is warm and dry. Respiratory: Respiratory effort is even, unlabored. GI: No signs and/or symptoms were reported involving the gastrointestinal system. Derm: Skin is pink, warm \T\ dry. Musculoskeletal: Circulation, motion, and sensation intact. 22:50 Reassessment: Patient is alert, oriented x 3, equal unlabored respirations, skin bb warm/dry/pink. pt verbalized understanding of and agrees to plan of care discharge instructions given pt ambulated with steady gait to exit accompanied by family. Vital Signs: 14:01 BP 144 / 94; Pulse 80; Resp 18; Temp 97.4(O); Pulse Ox 99% ; Weight 81.65 kg; Height 5 sears ft. 2 in. (157.48 cm); 14:01 Body Mass Index 32.92 (81.65 kg, 157.48 cm) sears ED Course: 13:56 Patient arrived in ED. as 14:03 Triage completed. sears 14:03 Arm band placed on right wrist. sears 14:13 CT Stroke Brain w/o Contrast In Process Unspecified. EDMS 14:16 Stroke CXR 1 View In Process Unspecified. EDMS 20:49 Darius Gregory NP is PHCP. pm1 20:49 Mk Howe MD is Attending Physician. pm1 21:00 Patient has correct armband on for positive identification. Pulse ox on. NIBP on. bb 21:00 No provider procedures requiring assistance completed. Patient maintains SpO2 bb saturation greater than 95% on room air. 21:59 by me. Inserted saline lock: 22 gauge in right wrist, using aseptic technique. lt3 21:59 Flu and/or RSV swab sent to lab. lt3 22:50 IV discontinued, intact, bleeding controlled, No redness/swelling at site. Pressure bb dressing applied. Administered Medications: 21:51 Drug: Tussionex Pennkinetic ER (chlorpheniramine-hydrocodone) Suspension 5 ml Route: PO;bb Outcome: 22:32 Discharge ordered by . pm1 22:50 Discharged to home ambulatory, with family. bb 22:50 Condition: stable 22:50 Discharge instructions given to patient, Instructed on discharge instructions, follow up and referral plans. medication usage, Demonstrated understanding of instructions, follow-up care, medications, Prescriptions given X 1. 22:55 Patient left the ED. bb Signatures: Dispatcher [employer] Zainab Carter Brenda, RN RN bb Darius Gregory NP CAR BRACER pm1 Jackie Chou lt3 Ladonna Greenberg, RN RN sears Corrections: (The following items were deleted from the chart) 14: PSHx: breast surgery; sears sears 14 PSHx: hystorectomy; sears sears
[2021-11-26 23:00] VITALS: BP 144/94; TEMP 97.4; O2SAT 99
== END 2021-11-26 22:55 | disposition home or self-care (01) ==
LOC: ER 13:55
DX: J06.9 Acute upper respiratory infection, unspecified (principal); R20.2 Paresthesia of skin
CPT/HCPCS: 36415; 70450; 71045; 80048; 84484; 85025; 85610; 85730; 87804; 93005; 99284

== ENCOUNTER 2022-04-03 11:25 | Emergency (ER) | payer OTHER ==
--- OUTSIDE RECORDS SUMMARY | 2022-04-03 11:28 | XMS REPORT | Clinical Summary ---
:1955 Author Organization [facility] Address [address] [place] [address] Care Team Providers Name Role Phone Mckay [...] IA (cT1b, cN0, cM0, G1, ER: Positive, IA: Negative, HER2: Negative) - Unsigned Osteoporosis Surgical History Surgery Date Site/Laterality Comments HYSTERECTOMY VEIN SURGERY BLADDER REPAIR IA MASTECTOMY, PARTIAL 06/14/2018 Breast/Bilateral Procedur e: SEGMENTAL MASTECTOMY - SEE D LOC; Surgeon: Marivel Melgar MD; Location: MAIN O R; Service: BREAST IA BX/REMV,LYMPH NODE,DEEP 06/14/2018 Axilla/Left Proce dure: SENTINEL [...] Vaccination (1) 1967 Results Not on fileafter 04/03/2021 Insurance Payer Benefit Plan / Subscriber ID Effective Dates Phone Addre ss Type Group MEDICARE MEDICARE PART [id number] 2020-[place] [phone] MISAEL Black Medicare A AND B t 2 SOLUTIONS [address] [place] [address] Advance Directives Type Date Recorded Patient Resident Associate Explanati on Advance Directives: 07/17/2018 12:00 AM Directive to Physicians Living Will and Family or Surrogates-Adolph g Will Advance Directives: 07/17/2018 12:00 AM Medical P asad of Medical 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
--- OUTSIDE RECORDS SUMMARY | 2022-04-03 11:29 | XMS REPORT | Continuity of Care Document ---
:1955 Author Organization [facility] t Address [address] [place] [address] Care Team Providers Name Role Phone Azra Pelaez DO Primary Care Physician [phone] Nikki_Haleigh Attending Clinician Unavailable Berry_S_AUS Attending Clinician Unavailable Forrest Attending Clinician Unavailable Haleigh Pelaez Attending Clinician Unavailable Edis Attending Clinician Unavailable Lab, Fam Pob I Attending Clinician Unavailable Inocente CIFUENTES Attending Clinician Unavailable Gualberto Attending Clinician Unavailable Haleigh Pelaez Admitting Clinician Unavailable Nikki_Haleigh Admitting Clinician Unavailable Berry_S_AUS Admitting Clinician Unavailable Payers Payer Name Policy Type Policy Number Effective Date Expiration Date S neymar WELLCARE (MEDICARE [id number] 2021 REPLACEMENT/ADVANT 00:00:00 AGE - PPO) CIGNA II [id number] 2013 00:00:00 Problems Condition Condition Condition Status Onset Resolution Last Treating Co mments Source Name Details Category Date Date Treatment Clinician Date Benign Benign Problem Active NPI:108 neoplasm Neoplasm 02-17 152045 1 of right of Right 00:00: breast Breast 00 Lumpectomy Lumpectomy Problem Active N PI:108 of left of Left 3-23 [id number] breast Breast 00:00: 00 Lumpectomy Lumpectomy Problem Active N PI:108 of right of Right 3- 437146 1 breast Breast 00:00: 00 History of History of Problem Active N PI:108 radiation Radiation 02-17 3619 191 therapy to Therapy to 00:00: breast Breast 00 area Area Malignant Malignant Problem Active NPI :108 tumor of Tumor of - 384269 1 breast Breast 00:00: 00 M50.10 - Diagnosis Active 2019-112020-10-04 M emoria CERVICAL 11-29 09:26:00 l DISC M50.10 - 00:01: Pepe n DISORDER W CERVICAL 00 RADIC DISC DISORDER W RADIC Active 09/29/2020 [facility] M50.13 - Diagnosis Active 2020-08-17 M emoria CERVICAL 05-27 19:03:00 l DISC M50.13 - 00:01: Pepe n DISORDER W CERVICAL 00 RADIC DISC DISORDER W RADIC Active 05/27/2020 [facility] Cystocele Cystocele Disease Active 3-04 Anderso 00:00: n 00 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 00:00: n 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 00:00: n of of 00 overlappin overlappin g sites of g sites of left left female female breast breast No known No known Disease Metho di active active st problems problems Hospit a l Osteoporos Osteoporos Disease Active M D is is Anderso n Dyspnea Problem Active 2020-10-06 Gautam edelmira (finding) 23:20:24 l Dyspnea Russ (finding) Active Problem 10/06/2020 [facility] Urinary Problem Active 2020-10-06 Gautam edelmira incontinen 23:20:24 l ce Urinary Russ (finding) incontinen ce (finding) [facility]lipid Problem Resolve 2020-10-06 Memoria emia d 23:20:24 l (disorder) Pepe n Hyperlipid emia (disorder) Resolved Problem 10/06/2020 [facility] Bronchitis Problem Active 2020-10-06 M emoria (disorder) 23:20:24 l Russ Bronchitis (disorder) Active Problem 10/06/2020 [facility] Morbid Problem Active 2020-10-06 Memor ia obesity 23:20:24 l (disorder) Morbid Herm elise obesity (disorder) Active Problem 10/06/2020 [facility] Pneumonia Problem Active 2020-10-06 Me moria (disorder) 23:20:24 l Russ Pneumonia (disorder) Active Problem 10/06/2020 [facility] Allergies, Adverse Reactions, Alerts Allergy Allergy Status Severity Reaction(s) Onset Inactive Treating Comm ents Source Name Type Date Date Clinician TAPE DA Active U RASH-UNKNOWN [facility] ,REDNESS 5-31 Clear 00:00: Ramos 00 [facility] NO KNOWN Drug Active NPI:183 ALLERGIE Class [id number] S Family History Family Member Diagnosis Comments Start Date Stop Date Source Natural brother Colon cancer MD Sanchez [place] Natural brother Cancer [facility] Natural father Heart disease [facility] Natural mother Diabetes [facility] Social History Social Habit Start Date Stop Date Quantity Comments Source History [facility] Drinks History [facility] Alcohol intake 2020-02-14 2020-02-14 Current MD Andrew cody 00:00:00 00:00:00 non-drinker of alcohol (finding) History SDAR 2019-10-05 2019-10-05 [facility] 00:00:00 [facility]:00 [facility] Tobacco use and 2018-05-22 2018-05-22 Smokeless tobacco MD Foster exposure 00:00:00 00:00:00 non-user Social History 2018-05-11 2018-05-11 [facility] 19:30:45 19:30:45 Sex Ass[birth year] At [birth year] MD Sky on 00:00:00 00:00:00 Smoking Status Start Date Stop Date Source Never Smoker Medications Ordered Filled Start Stop Current Ordering [...] Take 3,000 MD digna, 2-30 Units by Anderso vitamin D3, 02:28: mouth n (VITAMIN 35 daily. D3) 3,000 units tab tablet anastrozole Yes Cystocele, 1mg Take 1 MD (ARIMIDEX) 07-31 not tablet (1 Daniel rso 1 mg tablet 00:00: otherwise mg) by n 00 specified mouth daily. levothyroxi 2020- No Hypothyroid 50ug Take 1 MD ne 04-14 ism, not tablet (50 Daniel rso (Synthroid) 00:00: 04:59 otherwise mcg) by n 50 mcg 00 :00 specified mouth tablet daily. No known No Methodi medications [facility] Immunizations Ordered Immunization Filled Immunization Date Status Commen ts Source Name Name zoster recombinant zoster recombinant 2021-09-28 Completed 00:00:00 influenza, influenza, 2021-09-28 Completed injectable, injectable, 00:00:00 quadrivalent quadrivalent COVID-19, mRNA, COVID-19, mRNA, 2021-09-28 Completed LNP-S, PF, 30 LNP-S, PF, 30 00:00:00 mcg/0.3 mL dose mcg/0.3 mL dose ([employer]) ([employer]) zoster recombinant zoster recombinant 2021-03-28 Completed 00:00:00 COVID-19, mRNA, COVID-19, mRNA, 2021-03-28 Completed LNP-S, PF, 30 LNP-S, PF, 30 00:00:00 mcg/0.3 mL dose mcg/0.3 mL dose ([facility]) ([employer]) COVID-19, mRNA, COVID-19, mRNA, 2021-02-26 Completed LNP-S, PF, 30 LNP-S, PF, 30 00:00:00 mcg/0.3 mL dose mcg/0.3 mL dose ([employer]) ([employer]) Vital Signs Vital Name Observation Time Observation Value Comments Source Body Weight 2022-02-17 00:00:00 205.2 [lb_av] NPI:[id number] BP Diastolic 2022-02-17 00:00:00 78 mm[Hg] NPI:[id number] Height 2022-02-17 00:00:00 62 [in_i] NPI:[id number] BMI (Body Mass Index) 2022-02-17 00:00:00 37.5 kg/m2 BP Systolic 2022-02-17 00:00:00 139 mm[Hg] NPI:[id number] Procedures Procedure Date / Time Performed Performing Clinician [facility] e MAMMO, diagnostic, 2022-02-17 00:00:00 NPI:[id number] digital, bilateral bone density 2022-02-17 00:00:00 NPI:[id number] Colonoscopy 2017-09-28 00:00:00 [facility] Sacrocolpopexy 2012-12-20 06:00:00 [facility] Procedure on Vein Breast Care Procedure NPI:[id number] Hysterectomy (Total) NPI:[id number] Abdominal hysterectomy [facility] Biopsy of breast [facility] Pepe cody Excision of cyst of breast [facility] ash Bryantann Suspension of bladder [facility] Plan of Care Planned Activity Planned Date Details Comments Source Diagnostic Test 2022-02-17 lipid panel, serum NPI:10 [id number] Pending 00:00:00 [code = lipid panel, serum] Diagnostic Test 2022-02-17 CMP, serum or plasma Pending 00:00:00 [code = CMP, serum or plasma] Diagnostic Test 2022-02-17 HbA1c (hemoglobin NPI:[id number] Pending 00:00:00 A1c), blood [code = HbA1c (hemoglobin A1c), blood] Diagnostic Test 2022-02-17 TSH, serum or plasma Pending 00:00:00 [code = TSH, serum or plasma] Diagnostic Test 2022-02-17 vitamin D, NPI:[id number] Pending 00:00:00 25-hydroxy, total, serum [code = vitamin D, 25-hydroxy, total, serum] Diagnostic Test 2022-02-17 CBC w/ auto diff NPI:[id number] Pending 00:00:00 [code = CBC w/ auto diff] Diagnostic Test 2022-02-17 urinalysis complete, Pending 00:00:00 reflex culture [code = urinalysis complete, reflex culture] Future Scheduled Test 1967 COVID-19 Vaccination MD Foster 00:00:00 (1) [code = COVID-19 Vaccination (1)] Future Scheduled Test COLONOSCOPY SCREENING [facility] [code = COLONOSCOPY SCREENING] Future Scheduled Test SHINGLES VACCINES [facility] (#1) [code = SHINGLES VACCINES (#1)] Future Scheduled Test 65+ PNEUMOCOCCAL [facility] VACCINE (1 of - PPSV23) [code = 65+ PNEUMOCOCCAL VACCINE (1 of 1 - PPSV23)] Future Scheduled Test INFLUENZA VACCINE [facility] [code = INFLUENZA VACCINE] Future Scheduled Test COVID-19 VACCINE (1) [facility] [code = COVID-19 VACCINE (1)] Future Scheduled Test Hepatitis C screening [facility] (procedure) [code = 121228232] Future Scheduled Test Screening for [facility] malignant neoplasm of cervix (procedure) [code = 917258824] Future Scheduled Test BREAST CANCER [facility] SCREENING [code = BREAST CANCER SCREENING] Future Appointment 2023-02-19 Elma Murcia22 00:00:[address] [address] Instructions Encounters Start End Encounter Admission Attending Care Care Encounter Source Date/Time Date/Time Type Type Clinicians Facility Department ID 2021-02-03 Inpatient HCAPM JESUS [id number] [facility] 11:09:00 [facility] 2020-05-24 Inpatient HCAPM JESUS [id number] [facility] 11:12:00 [id number] [facility] 2022-03-27 2022-03-27 Outpatient Nikki_Haleigh VFP VFP [id number] NPI:108 01:13:00 01:13:00 [id number] 1 2022-02-20 2022-02-20 Outpatient Berry_S_AUS VFP VFP [id number] NPI:108 02:35:00 02:35:00 [id number] 1 2022-02-20 2022-02-20 Outpatient Berry_S_AUS VFP VFP [id number] NPI:108 02:35:00 02:35:00 [id number] 1 2022-02-20 2022-02-20 Outpatient Berry_S_AUS VFP VFP [id number] NPI:108 02:35:00 02:35:00 [id number] 1 2022-02-20 2022-02-20 Outpatient Berry_S_AUS VFP VFP 220 [id number] NPI:108 02:35:00 02:35:00 [id number] 1 2022-02-20 2022-02-20 Outpatient Berry_S_AUS VFP VFP 220 [id number] NPI:108 02:35:00 02:35:00 [id number] 1 2022-02-18 2022-02-18 Outpatient Severns_D VFP VFP [id number] NPI:108 03:42:00 03:42:00 [id number] 1 2022-02-17 2022-02-17 Outpatient Severns_D VFP VFP [id number] [id number] NPI:108 06:49:00 06:49:00 [id number] 1 2022-02-17 2022-02-17 Daneila VFP [place] - [id number] N PI:108 00:00:00 00:00:00 Janeth Jordan [address] 91 PA: [address] [facility], [address] [address], ([facility]) [place] [address] , Ph. 2021-11-25 2021-11-25 Emergency EM Paco Clayton [facility] [id number] [facility] 12:52:00 14:50:00 [id number] [facility] 2021-11-25 2021-11-25 Emergency EM Paco Clayton HCAPM HCAPM [id number] [facility] 12:52:00 14:50:00 98 [facility] 2021-07-03 2021-07-03 Outpatient RUSTY Pelaez HCAPM CESARIO [id number] [facility] 08:00:00 08:00:00 Tevin [id number] [facility] 2021-02-03 2021-02-03 Outpatient ROMAN RandhawaCL LABO [id number] [facility] 18:51:00 18:51:00 Andrew [id number] [facility] 2020-12-30 2020-12-30 Outpatient DESMOND Lopez RADI [id number] [facility] 16:35:00 16:35:00 Krеленаali [id number] [facility] 2020-11-26 2020-11-26 Laboratory Lab, [facility] [id number] 16:29:14 16:49:14 Only [facility] [id number] [place] [id number] Professio [id number] [address]al [address] 2020-11-26 2020-11-26 Outpatient R ESAU, [facility] [id number] NPI:183 16:40:00 16:40:00 JAMIE [id number] 2020-10-04 2020-10-05 Outpt Diag nullFlavo [facility] [id number] Memoria 15:16:00 05:59:00 Services r Outpatient 02 l [facility] 2020-05-24 2020-05-24 Outpatient MEGAN Burciaga LABO [id number] [facility] 23:56:00 23:56:00 [facility] [id number] [facility] 2020-05-23 2020-05-24 Outpt Diag nullFlavo [facility] [id number] Memoria 19:31:00 04:59:00 Services r Outpatient 00 l [facility] Results Test Description Test Time Test Comments Results Result Comments Source Covid 19 InHouse NTX 2021-02-04 13:46:00 Test Item Value Reference Range Interpretation Comme nts Covid 19 InHouse NTX (test Negative Negative A negative result does not preclude the code = [id number]) SARS-CO V-2 viralinfection and should not be used as the sole basis forpatient karlos gement decisions. Negative result s must becombined with clinical observ ations, patient history, andepidemiologi gaudencio information. Viral levels in clini calsamples below the detection limit of the assay could lead tonegative resu lts. This test was performed using the [employer] SmartTM COVID-19 PCRass ay. This test was developed and i ts performancechar acteristics were determined by Mckay galindo [facility]. Thi s test has notbeen FDA [...] defined by CDC? YesDate of Symptom Onset: [id number] due to COVID? NoIn ICU due to COVID? NoResident in a congregate care setting? No? NoAge at collection: YUA RFLX MICR CULT IF [id number] 12:22:00 Test Item Value Reference Range Interpretation [...] Indication for culture: Dysuria/Frequency- CT HEAD/BRAIN W/O [id number] 17:12:00[facility] : 1955 Sex: F Name: BOLA DELVALLE [facility] : 1955 Age/S: 65 / F [address] Unit #: [id number] Loc: [place] [address] Phys: PelaezTevin DO Acct: [id number] Dis Date: Status: REG CLI PHONE #: [phone] Exam Date: 12/30/2020 1655 FAX #: Reason: TENSION TYPE HEADACHE EXAMS: CPT: [id number] CT HEAD/BRAIN W/O CONT [id number] EXAM: - CT HEAD/BRAIN W/O CONT Location [...] PAGE 1Signed Report (CONTINUED) Name: BOLA DELVALLE : 1955 Age/S: 65 / F [address] Unit #: [id number] Loc: [place] [address] Phys: Tevin Pelaez DO Acct: [id number] Dis Date: Status: REG CLI PHONE #: [phone] Exam Date: 12/30/2020 1655 FAX #: Reason: TENSION TYPE HEADACHE EXAMS: CPT: [id number] CT HEAD/BRAIN W/O CONT [id number] <Continued> CC: Tevin Pelaez DO Technologist:Sulma Walker, RT(R)(CT)(MRI) CTDI: DLP: Trnscb Date/Time: 12/30/2020 (1711) [email or web address] Orig Print D/T: S: 12/30/2020 (1715) PAGE 2 Signed ReportNovel Coronavirus 2019 [id number] 09:51:00 Test Item Value Reference Range Interpretation Comments Novel Coronavirus Negative Negative THIS TEST PROCEDURE HAS 2018 nCoV (test code THE SCOTT LOWING = COVID19) LIMITATIONS: TH E DETECTION OF RAL NUCLEIC ACID IS DEPENDENT UPON PROPERSPECIMEN COLLECTION, SELF DLING, TRANSPORTATION, STORAGE, ANDPREPARATION. FAILURE TO OBSERVE PROP ER PROCEDURES IN A DE ONEOF THESE STEPS CAN LEAD TO INCORRECT [...]
[2022-04-03] MEDS ORDERED: MORPHINE 4 MG/ML SYR ONE (12:27)
[2022-04-03] MEDS ORDERED: NA CHLORIDE 0.9% 500 ML ONE (12:27)
[2022-04-03] MEDS ORDERED: ONDANSETRON 4 MG/2 ML VIAL ONE (12:27)
[2022-04-03 12:35] LABS: Urine Blood 3+ (Negative); Urine Glucose Negative (Negative); Urine Protein 1+ (Negative); Urine pH 5.5 (5.0-7.0)
[2022-04-03 12:41] LABS: Absolute Lymphocytes (CBC) 1.7 K/uL (0.7-4.9); Hematocrit 39.9 % (36.0-45.0); Lymphocytes % 11.3 % (15.3-44.8); MPV 8.3 fL (7.6-11.3); RBC Red Blood Cell Count 4.72 M/uL (3.86-4.86)
[2022-04-03 13:08] LABS: Albumin 3.4 g/dL (3.4-5.0); Bilirubin Total 0.8 mg/dL (0.2-1.0); Potassium 3.1 mmol/L (3.5-5.1); Protein, Total 7.5 g/dL (6.4-8.2)
[2022-04-03 13:09] LABS: Blood Morphology Comment NOT SEEN (NOT SEEN); Platelet Estimate ADEQ
--- NOTE | 2022-04-03 13:39 | RAD REPORT ---
EXAM DESCRIPTION: CTAbdomen Pelvis W Contrast - 04/03/2022 1:26 pm CLINICAL HISTORY: LLQ abdominal pain COMPARISON: No comparisons TECHNIQUE: CT of the abdomen and pelvis was performed. All CT scans are performed using dose optimization technique as appropriate and may include automated exposure control or mA/KV adjustment according to patient size. FINDINGS: Lower chest: No acute abnormality. Small hiatal Liver: No acute abnormality or suspicious lesions. Biliary: No biliary ductal dilatation. Stomach: No significant focal abnormality. Duodenum: No significant focal abnormality. Pancreas: No significant abnormality. Spleen: No significant abnormality. Adrenal: No suspicious lesions. Kidney/ureter: No hydronephrosis. No renal calculi. Right renal cyst. Retroperitoneum: No retroperitoneal adenopathy. Vascular: No aneurysm. Bowel: Mild hyperenhancement of terminal ileum and ascending and transverse colon. There is fluid wit hin the small bowel. Normal appendix. Peritoneum: No ascites or free air. Periumbilical hernia. Small fat containing umbilical hernia. Bladder: Grossly unremarkable. Reproductive: No adnexal masses. Bones: No acute fracture. Anterolisthesis of L4 on L5. Other: n/a IMPRESSION: Wall thickening involving the terminal ileum and proximal third of the colon consistent with the presence of an enterocolitis. No bowel obstruction. Normal appendix.
[2022-04-03] MEDS ORDERED: CIPROFLOXACIN HCL 500 MG TAB ONE (14:00)
[2022-04-03] MEDS ORDERED: METRONIDAZOLE 500mg IVPB 500 MG/100 ML BAG IV ONE (14:00)
--- NOTE | 2022-04-03 14:34 | ER ---
Nurse's Notes [facility] Name: Tessa Delvalle Age: 66 yrs Sex: Female : 1955 Arrival Date: 04/03/2022 Time: 11:27 Bed 19 Private MD: Diagnosis: Colitis Presentation: 04/03 12:05 Chief complaint: Patient states: DOOLEY, weak, N/V/D, abd pain since yesterday evening. No ll1 appetite or fever. Coronavirus screen: Vaccine status: Patient reports receiving the 2nd dose of the covid vaccine. Client denies travel out of the [place] in the last 14 days. diarrhea, fatigue, headache, nausea, vomiting. Client presents with at least one sign or symptom that may indicate coronavirus-19. Standard/surgical mask placed on the client. Ebola Screen: Patient denies travel to an Ebola-affected area in the 21 days before illness onset. Initial Sepsis Screen: Does the patient meet any 2 criteria? HR > 90 bpm. No. Patient's initial sepsis screen is negative. Does the patient have a suspected source of infection? Yes: Acute abdominal pain. Risk Assessment: Do you want to hurt yourself or someone else? Patient reports no desire to harm self or others. Onset of symptoms was April 02, 2022. 12:05 Method Of Arrival: Ambulatory ll1 12:05 Acuity: ASTON 3 ll1 Triage Assessment: 12:07 General: Appears ill, Behavior is cooperative, appropriate for age. Pain: Complains of ll1 pain in head Quality of pain is described as aching. GI: Reports lower abdominal pain, upper abdominal pain, cramping, diarrhea, nausea, vomiting. Historical: - Allergies: 12:00 No Known Allergies; ll1 - PMHx: 12:00 CHEMO/RADIATION; breast cancer; ll1 12:03 borderline diabetes; ll1 - PSHx: 12:03 breast CA with chemo and radiation; hysterectomy; bladder mesh; ll1 - Immunization history:: Client reports receiving the 2nd dose of the Covid vaccine. - Social history:: Smoking status: Patient denies any tobacco usage or history of. Screenin:16 Abuse screen: Denies threats or abuse. Denies injuries from another. Nutritional ld1 screening: No deficits noted. Tuberculosis screening: No symptoms or risk factors identified. Fall Risk None identified. Assessment: 12:16 General: Appears in no apparent distress. comfortable, Behavior is calm, cooperative, ld1 appropriate for age. Pain: Complains of pain in abdomen Pain does not radiate. Pain currently is 8 out of 10 on a pain scale. Quality of pain is described as throbbing, Pain began gradually. Neuro: Level of Consciousness is awake, alert, obeys commands, Oriented to person, place, time, situation. Cardiovascular: Capillary refill < 3 seconds Patient's skin is warm and dry. Respiratory: Airway is patent Respiratory effort is even, unlabored, Respiratory pattern is regular, symmetrical. GI: Abdomen is round non-distended, Bowel sounds present X 4 quads. Abd is soft Abdomen is tender to palpation X 4 quads. : No signs and/or symptoms were reported regarding the genitourinary system. EENT: No signs and/or symptoms were reported regarding the EENT system. Derm: No signs and/or symptoms reported regarding the dermatologic system. Musculoskeletal: No signs and/or symptoms reported regarding the musculoskeletal system. 13:18 Reassessment: Patient appears in no apparent distress at this time. Patient is alert, ld1 oriented x 3, equal unlabored respirations, skin warm/dry/pink. 14:22 Reassessment: Patient appears in no apparent distress at this time. Patient is alert, ld1 oriented x 3, equal unlabored respirations, skin warm/dry/pink. Vital Signs: 12:05 Pulse 107; Resp 18; Temp 97.2; Pulse Ox 96% ; Weight 90.26 kg; Height 5 ft. 2 in. ll1 (157.48 cm); Pain 7/10; 12:16 BP 95 / 46; Pulse 105; Resp 18; Pulse Ox 96% on R/A; Pain 8/10; ld1 13:18 BP 110 / 58; Pulse 95; Resp 18; Pulse Ox 96% on R/A; ld1 14:22 BP 112 / 64; Pulse 89; Resp 18; Pulse Ox 96% on R/A; ld1 12:05 Body Mass Index 36.40 (90.26 kg, 157.48 cm) ll1 ED Course: 11:27 Patient arrived in ED. mr 11:42 Darius Gregory NP is PHCP. pm1 11:42 Macho Foster MD is Attending Physician. pm1 12:00 Arm band placed on Patient placed in an exam room, on a stretcher. ll1 12:07 Triage completed. ll1 12:14 Monica Cleary, RN is Primary Nurse. ld1 12:16 Patient has correct armband on for positive identification. Placed in gown. Bed in low ld1 position. Call light in reach. Side rails up X2. appellate law clerk on. Pulse ox on. NIBP on. Door closed. Noise minimized. Warm blanket given. 12:16 No provider procedures requiring assistance completed. Inserted saline lock: 20 gauge ld1 in right wrist, using aseptic technique. Blood collected. 13:28 CT Abd/Pelvis - IV Contrast Only In Process Unspecified. EDMS 14:43 IV discontinued, intact, bleeding controlled, No redness/swelling at site. ld1 Administered Medications: 12:28 Drug: NS 0.9% 500 ml Route: IV; Rate: bolus; Site: right wrist; ld1 12:29 Drug: Zofran (Ondansetron) 4 mg Route: IVP; Site: right wrist; ld1 12:30 Follow up: Response: No adverse reaction ld1 12:29 Drug: morphine 4 mg Route: IVP; Site: right wrist; ld1 12:30 Follow up: Response: No adverse reaction ld1 14:03 Drug: Cipro (ciprofloxacin) 500 mg Route: PO; ld1 14:03 Drug: Flagyl (metroNIDAZOLE) 500 mg Volume: 100 ml; Route: IVPB; Rate: 200 ml/hr; ld1 Infused Over: 30 mins; Site: right wrist; Outcome: 14:34 Discharge ordered by MD. pm1 14:43 Discharged to home ambulatory, with family. ld1 14:43 Condition: stable 14:43 Discharge instructions given to patient, family, Instructed on discharge instructions, follow up and referral plans. medication usage, Demonstrated understanding of instructions, follow-up care, medications, Prescriptions given X 3. 14:43 Patient left the ED. ld1 Signatures: Dispatcher [employer] KIMOH OvalleErika weinberg BriDarius, MARKETING OPERATIONS ASSISTANT MARKETING OPERATIONS ASSISTANT pm1 Lorraine Gar, HZAEL RN ll1 Monica Cleary, RN RN ld1
--- NOTE | 2022-04-03 14:34 | EDPHYS ---
Physician Documentation [facility] Name: Tessa Delvalle Age: 66 yrs Sex: Female : 1955 Arrival Date: 04/03/2022 Time: 11:27 Bed 19 Private MD: ED Physician Macho Foster HPI: 04/03 12:10 This 66 yrs old Female presents to ER via Ambulatory with complaints of pm1 Abdominal Pain, Vomiting/Diarrhea, Weakness. 12:10 The patient presents with abdominal pain right lower quadrant. Onset: The pm1 symptoms/episode began/occurred last night. The symptoms do not radiate. Associated signs and symptoms: Pertinent positives: diarrhea, Pertinent negatives: nausea and vomiting, dysuria, fever. The symptoms are described as crampy. Modifying factors: The symptoms are alleviated by nothing, the symptoms are aggravated by nothing. Severity of pain: in the emergency department the pain is unchanged. The patient has not experienced similar symptoms in the past. The patient has not recently seen a physician. Historical: - Allergies: 12:00 No Known Allergies; ll1 - PMHx: 12:00 CHEMO/RADIATION; breast cancer; ll1 12:03 borderline diabetes; ll1 - PSHx: 12:03 breast CA with chemo and radiation; hysterectomy; bladder mesh; ll1 - Immunization history:: Client reports receiving the 2nd dose of the Covid vaccine. - Social history:: Smoking status: Patient denies any tobacco usage or history of. ROS: 12:10 Constitutional: Negative for fever, chills, and weight loss, Cardiovascular: Negative pm1 for chest pain, palpitations, and edema, Respiratory: Negative for shortness of breath, cough, wheezing, and pleuritic chest pain. 12:10 Back: Negative for injury and pain, : Negative for injury, bleeding, discharge, and swelling, MS/Extremity: Negative for injury and deformity, Skin: Negative for injury, rash, and discoloration, Neuro: Negative for headache, weakness, numbness, tingling, and seizure. 12:10 Abdomen/GI: Positive for abdominal pain, diarrhea, of the right lower quadrant, Negative for nausea and vomiting. 12:10 All other systems are negative. Exam: 12:10 Constitutional: This is a well developed, well nourished patient who is awake, alert, pm1 and in no acute distress. Head/Face: Normocephalic, atraumatic. 12:10 Back: No spinal tenderness. No costovertebral tenderness. Full range of motion. Skin: Warm, dry with normal turgor. Normal color with no rashes, no lesions, and no evidence of cellulitis. MS/ Extremity: Pulses equal, no cyanosis. Neurovascular intact. Full, normal range of motion. 12:10 Cardiovascular: Exam negative for acute changes, Rate: normal, Rhythm: regular, Pulses: no pulse deficits are appreciated, Heart sounds: normal. 12:10 Respiratory: Exam negative for acute changes, respiratory distress, shortness of breath, Breath sounds: are clear throughout. 12:10 Abdomen/GI: Inspection: obese Palpation: abdomen is soft and non-tender, in all quadrants. 12:10 Neuro: Exam negative for acute changes, Orientation: is normal, Mentation: is normal, Motor: is normal, moves all fours. Vital Signs: 12:05 Pulse 107; Resp 18; Temp 97.2; Pulse Ox 96% ; Weight 90.26 kg; Height 5 ft. 2 in. ll1 (157.48 cm); Pain 7/10; 12:16 BP 95 / 46; Pulse 105; Resp 18; Pulse Ox 96% on R/A; Pain 8/10; ld1 13:18 BP 110 / 58; Pulse 95; Resp 18; Pulse Ox 96% on R/A; ld1 14:22 BP 112 / 64; Pulse 89; Resp 18; Pulse Ox 96% on R/A; ld1 12:05 Body Mass Index 36.40 (90.26 kg, 157.48 cm) ll1 MDM: 12:01 Patient medically screened. alexis 14:32 Data reviewed: vital signs. Data interpreted: Pulse oximetry: on room air is 96 %. pm1 Interpretation: normal. Counseling: I had a detailed discussion with the patient and/or guardian regarding: the historical points, exam findings, and any diagnostic results supporting the discharge/admit diagnosis, lab results, radiology results, the need for outpatient follow up, a application defense manager, to return to the emergency department if symptoms worsen or persist or if there are any questions or concerns that arise at home. 04/03 12:10 Order name: CBC with Diff; Complete Time: 13:15 pm1 04/03 12:10 Order name: CMP; Complete Time: 13:15 pm1 04/03 12:10 Order name: Lipase; Complete Time: 13:15 pm1 04/03 12:10 Order name: CT Abd/Pelvis - IV Contrast Only; Complete Time: 13:49 pm1 04/03 12:35 Order name: Urine Dipstick-Ancillary; Complete Time: 13:15 EDMS 04/03 13:10 Order name: Manual Differential; Complete Time: 13:15 EDMS 04/03 12:10 Order name: IV Saline Lock; Complete Time: 12:15 pm1 04/03 12:10 Order name: Labs collected and sent; Complete Time: 12:15 pm1 04/03 12:10 Order name: Urine Dipstick-Ancillary (obtain specimen); Complete Time: 12:35 pm1 Administered Medications: 12:28 Drug: NS 0.9% 500 ml Route: IV; Rate: bolus; Site: right wrist; ld1 12:29 Drug: Zofran (Ondansetron) 4 mg Route: IVP; Site: right wrist; ld1 12:30 Follow up: Response: No adverse reaction ld1 12:29 Drug: morphine 4 mg Route: IVP; Site: right wrist; ld1 12:30 Follow up: Response: No adverse reaction ld1 14:03 Drug: Cipro (ciprofloxacin) 500 mg Route: PO; ld1 14:03 Drug: Flagyl (metroNIDAZOLE) 500 mg Volume: 100 ml; Route: IVPB; Rate: 200 ml/hr; ld1 Infused Over: 30 mins; Site: right wrist; Disposition Summary: 04/03/22 14:34 Discharge Ordered Location: Home pm1 Problem: new pm1 Symptoms: have improved pm1 Condition: Stable pm1 Diagnosis - Colitis pm1 Followup: pm1 - With: Emergency Department - When: As needed - Reason: Worsening of condition Followup: pm1 - With: Private Physician - When: 2 - 3 days - Reason: Recheck today's complaints, Continuance of care, Re-evaluation by your physician Discharge Instructions: - Discharge Summary Sheet pm1 - Colitis pm1 Forms: - Medication Reconciliation Form pm1 - Thank You Letter pm1 - Antibiotic Education pm1 - Prescription Opioid Use pm1 Prescriptions: - Flagyl 500 mg Oral Tablet - take 1 tablet by ORAL route every 8 hours for 10 days; 30 tablet; Refills: 0, pm1 Product Selection Permitted - Cipro 500 mg Oral Tablet - take 1 tablet by ORAL route every 12 hours for 10 days; 20 tablet; Refills: 0, pm1 Product Selection Permitted - Tylenol-Codeine #3 300 mg-30 mg Oral - take 2 tablet by ORAL route every 6 hours As needed; 20 tablet; Refills: 0, pm1 Product Selection Permitted Signatures: Dispatcher [employer] EDMacho Sow MD MD cha Marinas, Patrick, NP LAW TUTOR pm1 Lorraine Gar RN RN ll1 Monica Cleary RN RN ld1
[2022-04-03 16:33] VITALS: TEMP 97.2; O2SAT 96
[2022-04-03 16:37] VITALS: BP 112/64
== END 2022-04-03 14:43 | disposition home or self-care (01) ==
LOC: ER 11:25
DX: K52.9 Noninfective gastroenteritis and colitis, unspecified (principal); Z85.3 Personal history of malignant neoplasm of breast
CPT/HCPCS: 85025; 36415; 81003; 83690; 80053; 74177; 96375; 96374; 99284; Q9967; J7040; J3490; J2405

== ENCOUNTER 2022-07-19 11:21 | Emergency (ER) | payer OTHER ==
--- OUTSIDE RECORDS SUMMARY | 2022-07-19 11:23 | XMS REPORT | Clinical Summary ---
:1955 Author Organization [facility] MD [facility] Address [address] [place] [address] Care Team Providers Name Role Phone Susana Lerner MD Unavailable Petra Gutierrez NP Primary Care Provider [phone] Rebekah Hall MD Unavailable Allergies No known active allergies Medications Medication Sig Dispensed Refills Start Date End Date Status calcium Take 2,000 Units 0 Act kathy carbonate/vitamin D3 by mouth daily. 1 (CALCIUM+D ORAL) tablet = Calcium 500 mg + D3 200 units cholecalciferol, Take 3,000 Units 0 Active vitamin D3, (VITAMIN by mouth daily. D3) 3,000 units tab tablet anastrozole (ARIMIDEX) Take 1 tablet (1 90 tablet 3 07/31/2020 Active 1 mg tabletIndications: mg) by mouth Infiltrating duct daily. 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 05/18/2018 Cancer Staging: Clinical stage from 05/22: Stage IA (cT1b, cN0, cM0, G1, ER: Positive, MT: Negative, HER2: Negative) - Unsigned Osteoporosis Surgical History Surgery Date Site/Laterality Comments HYSTERECTOMY VEIN SURGERY BLADDER REPAIR MT MASTECTOMY, PARTIAL 06/14/2018 Breast/Bilateral Procedur e: SEGMENTAL MASTECTOMY - SEE D LOC; Surgeon: Marivel Melgar MD; Location: MAIN O R; Service: BREAST MT BX/REMV,LYMPH NODE,DEEP 06/14/2018 Axilla/Left Proce dure: SENTINEL NODE AXILL BIOPSY - AXILLA; Surgeon: Mckay Mcintosh; Location: MAIN OR; Service : BREAST Medical History Medical History Date Comments [...] Due Date Last Done Comments COVID-19 Vaccination (#1) 1960 Results Not on fileafter 07/19/2021 Insurance Payer Benefit Plan / Subscriber ID Effective Dates Phone Addre ss Type Group MEDICARE MEDICARE PART [id number] 2020-Presen [phone] [facility] Medicare A AND B t 2 SOLUTIONS [address] [place] [address] Advance Directives Type Date Recorded Patient Benefits Specialist Explanati on Advance Directives: 07/17/2018 Directive to Physicians Living Will and Family or Surrogates-Adolph hernandez Will Advance Directives: 07/17/2018 Medical Carmen r of It Service Continuity Supervisor Medical Power of It Service Continuity Supervisor Care Teams Soil Conservationist Relationship Specialty Start Date End Date Petra Gutierrez PCP - General Breast Medical Oncology 04/14/20 LACEY Muniz [address] [place] [id number] Susana Lerner, Physician Endocrinology 03/26/[address] [place] [id number] Rebekah Hall, Consulting Physician Breast Medical Oncology 02/26 02/[address] [place] [id number]
--- OUTSIDE RECORDS SUMMARY | 2022-07-19 11:24 | XMS REPORT | Continuity of Care Document ---
:1955 Author Organization [facility] t Address [address] [place]. [address] [place] [address] Care Team Providers Name Role Phone Tevin Pelaez DO Primary Care Physician Ayana Attending Clinician Unavailable Vikash_S_AUS Attending Clinician Unavailable Paco Clayton Attending Clinician Unavailable Tevin Pelaez Attending Clinician Unavailable Andrew Randhawa Attending Clinician Unavailable Lab, Adc Fam Pob I Attending Clinician Unavailable JAMIE CIFUENTES Attending Clinician Unavailable Rehana Burciaga Attending Clinician Unavailable Tevin Pelaez Admitting Clinician Unavailable Nikki_Haleigh Admitting Clinician Unavailable Vikash_S_AUS Admitting Clinician Unavailable Payers Payer Name Policy Type Policy Number Effective Date Expiration Date S neymar [employer]LLCARE (MEDICARE [id number] 2021 REPLACEMENT/ADVANT 00:00:00 AGE - PPO) CIGNA II [id number] 2013 00:00:00 Problems Condition Condition Condition Status Onset Resolution Last Treating Co mments Source Name Details Category Date Date Treatment Clinician Date Mixed Mixed Problem Active [place] hyperlipid Hyperlipid 3-25 Yumiko geller 00:00: Practic 00 e Prediabete Prediabete Problem Active [facility] ill[facility] s s 3-25 Family 00:00: Practic 00 e Benign Benign Problem Active [facility] neoplasm Neoplasm 3-23 Family of right of Right 00:00: Practi c breast Breast 00 e Lumpectomy Lumpectomy Problem Active [facility] of left of Left 3-23 Family breast Breast 00:00: Practic 00 e Lumpectomy Lumpectomy Problem Active [facility] of right of Right 3-23 Family breast Breast 00:00: Practic 00 e History of History of Problem Active [facility] radiation Radiation 02-17 Fami ly therapy to Therapy to 00:00: Pr actic breast Breast 00 e area Area Malignant Malignant Problem Active Stephanie luanne tumor of Tumor of 3-23 Family breast Breast 00:00: Practic 00 e M50.10 - M50.10 - Diagnosis Active 2019-112020-10-04 Memoria CERVICAL CERVICAL 1-02 09:26:00 l DISC DISC 00:01: [place] DISORDER W DISORDER W 00 RADIC RADIC Active 09/29/2020 [facility] [place] M50.13 - M50.13 - Diagnosis Active 2020-08-17 Memoria CERVICAL CERVICAL 6-30 19:03:00 l DISC DISC 00:01: Russ DISORDER W DISORDER W 00 RADIC RADIC Active 05/27/2020 [facility] [place] Cystocele Cystocele Disease Active Uni vers 3-04 ity of 00:00: [place] 00 MD [facility] 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 7-10 ity of hyperplasi [place]pl[place] breast breast [facility] Infiltrati Infiltrati Disease Active U nivers ng duct ng duct 6-21 ity of carcinoma carcinoma 00:00[place] smithpin overlappin An derso g sites of g sites of n left left Cancer female female Center breast breast Morbid Morbid Problem Active 2020-10-06 Mem oria obesity obesity 23:20:24 l (disorder) (disorder) He rmann Active Problem 10/06/2020 [facility] [place] Pneumonia Pneumonia Problem Active 2020-10-06 Memoria (disorder) (disorder) 23:20:24 l Active Russ Problem 10/06/2020 MH [facility] [place] Osteoporos Osteoporos Disease Active U nivers is is it of [place] MD [facility] No known No known Disease Metho di active active st problems problems Hospit a l Dyspnea Dyspnea Problem Active 2020-10-06 Me moria (finding) (finding) 23:20:24 l Active Russ Problem 10/06/2020 MH [facility] [place] Urinary Urinary Problem Active 2020-10-06 Me moria incontinen incontinen 23:20:24 l ce ce [place] (finding) (finding) Active Problem 10/06/2020 [facility] [place] Hyperlipid Hyperlipi Problem Resolve 2020-10-06 Memoria emia demia d 23:20:24 l (disorder) (disorder) He rmann Resolved Problem 10/06/2020 [facility] [place] Bronchitis Bronchiti Problem Active 2020-10-06 Memoria (disorder) s 23:20:24 l (disorder) Pepe n Active Problem 10/06/2020 MH [facility] [place] Allergies, Adverse Reactions, Alerts Allergy Allergy Status Severity Reaction(s) Onset Inactive Treating Comm ents Source Name Type Date Date Clinician TAPE DA Active U RASH-UNKNOWN 2018-0 [facility] ,REDNESS 5-31 Clear 00:00: [facility] NO KNOWN Drug Active Univers ALLERGIE Class ity of [facility] Family History Family Member Diagnosis Comments Start Date Stop Date Source Natural brother Cancer [facility] Natural brother Colon cancer [facility] MD Cristian Latif r [place] Natural father Heart disease [facility] Natural mother Diabetes [facility] Social History Social Habit Start Date Stop Date Quantity Comments Source History [facility] Drinks History [facility] Alcohol intake 2020-02-14 2020-02-14 Current University of 00:00:00 00:00:00 non-drinker of Miguel li alcohol (finding) Cancer Center History SDOH 2019-10-05 2019-10-05 1 [facility] Alcohol Frequency 00:00:00 00:00:00 Hospita l Tobacco use and 2018-05-22 2018-05-22 Smokeless tobacco Un iversity of exposure 00:00:00 00:00:00 non-user Miguel huerta [facility] Social History 2018-05-11 2018-05-11 Rian loja 19:30:45 19:30:45 Sex [birth year] Univers[facility] y [facility] 00:00:00 00:00:[address] [facility] Smoking Status Start Date Stop Date Source Never Smoker [place] Family P bisi Medications Ordered Filled Start Stop Current Ordering Indication Dosage Frequency Signature Comments Components Source Medication Medication Date Date Medication? Clinician (SIG) Name Name calcium 2019-11 Yes 2000U Take 2,000 Uni vers carbonate/v 2-30 Units by ity of itamin D3 02:28: mouth Miguel (CALCIUM+D 35 daily. 1 ORAL) tablet = Anderso Calcium n 500 mg + Cancer D3 200 Center units cholecalcif 2019-11 Yes 3000U Take 3,000 Univers digna, 2-30 Units by ity of vitamin D3, 02:28: mouth [place] (VITAMIN 35 daily. D3) 3,000 Anderso units tab n tablet [facility] anastrozole Yes Cystocele, 1mg Take 1 Univers (ARIMIDEX) 07-31 not tablet (1 ity of 1 mg tablet 00:00: otherwise mg) by [place] 00 specified mouth daily. [facility] Center No known No [facility]i medications [facility] atorvastati atorvastati No atorvastat [place] n 10 mg n 10 mg in 10 mg Famil y tablet TAKE tablet TAKE tablet Practic 1 TABLET BY 1 TABLET BY TAKE 1 e MOUTH EVERY MOUTH EVERY TABLET BY NIGHT AT NIGHT AT MOUTH BEDTIME BEDTIME EVERY NIGHT AT BEDTIME hydrocortis hydrocortis No hydrocorti [place] one 2.5 % one 2.5 % sone 2.5 % Family topical topical topical Practi c cream APPLY cream APPLY cream e 1 1 APPLY 1 APPLICATION APPLICATION APPLICATIO TWICE DAILY TWICE DAILY N TWICE USE IN AND USE IN AND DAILY USE AROUND AROUND IN AND RECTUM RECTUM AROUND AFTER SITZ AFTER SITZ RECTUM BATH BATH AFTER SITZ BATH pantoprazol pantoprazol No pantoprazo [place] e 40 mg e 40 mg le 40 mg Famil y tablet,german tablet,german tablet,del Practic yed release yed release ayed e TAKE 1 TAKE 1 release TABLET BY TABLET BY TAKE 1 MOUTH EVERY MOUTH EVERY TABLET BY DAY BEFORE DAY BEFORE MOUTH BREAKFASY BREAKFASY EVERY DAY OR FIRST OR FIRST BEFORE MEAL MEAL BREAKFASY OR FIRST MEAL Immunizations Ordered Immunization Filled Immunization Date Status Commen ts Source Name Name COVID-19, mRNA, COVID-19, mRNA, 2021-11-28 Completed [facility] age Family LNP-S, PF, 30 mcg/0.3 LNP-S, PF, 30 mcg/0.3 00:00:00 Practice mL dose mL dose (Pfizer-BioNTech) (Pfizer-BioNTech) zoster recombinant zoster recombinant 2021-09-28 Completed [facility] 00:00:00 Practice influenza, influenza, 2021-09-28 Completed [facility] injectable, injectable, 00:00:00 Practice quadrivalent quadrivalent COVID-19, mRNA, COVID-19, mRNA, 2021-09-28 Completed [facility] age Family LNP-S, PF, 30 mcg/0.3 LNP-S, PF, 30 mcg/0.3 00:00:00 Practice mL dose mL dose (Pfizer-BioNTech) (Pfizer-BioNTech) zoster recombinant zoster recombinant 2021-03-28 Completed [facility] 00:00:00 Practice COVID-19, mRNA, COVID-19, mRNA, 2021-03-28 Completed [facility] age Family LNP-S, PF, 30 mcg/0.3 LNP-S, PF, 30 mcg/0.3 00:00:00 Practice mL dose mL dose (Pfizer-BioNTech) (Pfizer-BioNTech) COVID-19, mRNA, COVID-19, mRNA, 2021-02-26 Completed [facility] age Family LNP-S, PF, 30 mcg/0.3 LNP-S, PF, 30 mcg/0.3 00:00:00 Practice mL dose mL dose (Pfizer-BioNTech) (Pfizer-BioNTech) pneumococcal pneumococcal 2019-11-28 Completed [facility] polysaccharide PPV23 polysaccharide PPV23 00:00:00 Practice pneumococcal pneumococcal 2013-11-28 Completed [facility] polysaccharide PPV23 polysaccharide PPV23 00:00:00 Practice Vital Signs Vital Name Observation Time Observation Value Comments Source BP Diastolic 2022-06-05 00:00:00 82 mm[Hg] [facility] Practice Height 2022-06-05 00:00:00 62 [in_i] [facility] Practice BMI (Body Mass 2022-06-05 00:00:00 36.3 kg/m2 [facility] Index) Practice BP Systolic 2022-06-05 00:00:00 120 mm[Hg] [facility] Body Weight 2022-06-05 00:00:00 198.6 [lb_av] [facility] BP Diastolic 2022-04-06 00:00:00 75 mm[Hg] [facility] Height 2022-04-06 00:00:00 62 [in_i] [facility] Practice BMI (Body Mass 2022-04-06 00:00:00 36.6 kg/m2 [facility] Index) Practice BP Systolic 2022-04-06 00:00:00 110 mm[Hg] [facility] Body Weight 2022-04-06 00:00:00 200 [lb_av] [facility] BP Diastolic 2022-02-17 00:00:00 78 mm[Hg] [facility] Height 2022-02-17 00:00:00 62 [in_i] [facility] BMI (Body Mass 2022-02-17 00:00:00 37.5 [facility]2 [facility] BP Systolic 2022-02-17 00:00:00 139 mm[Hg] [facility] Body Weight 2022-02-17 00:00:00 205.2 [lb_av] [facility] Procedures Procedure Date / Time Performing Clinician Source Performed unlisted imaging order 2022-05-10 00:00:00 [facility] DEXA, axial skeleton 2022-05-10 00:00:00 [facility] bone density 2022-04-06 [facility], diagnostic, 2022-04-06 00:00:00 [facility] Vadim sukumar digital, bilateral Practice MAMMO, diagnostic, 2022-02-17 00:00:00 [facility] Vadim sukumar digital, bilateral Practice bone density 2022-02-17 00:00:00 [facility] Claudia ly Practice Colonoscopy 2017-09-28 00:00:00 [facility] Sacrocolpopexy 2012-12-20 06:00:00 [facility] Abdominal hysterectomy [facility] Biopsy of breast [facility] Excision of cyst of [facility] breast Suspension of bladder [facility] ermann Procedure on Vein [facility] Practice Breast Care Procedure [facility] Hysterectomy (Total) [facility] Plan of Care Planned Activity Planned Date Details Comments Source Future Scheduled Test 2022-07-09 COVID-19 Vaccination University 05:28:21 (#1) [code = COVID-19 [place] MD Foster Vaccination (#1)] Cancer Ameena ter Diagnostic Test 2022-06-05 HbA1c (hemoglobin [facility] Family Pending 00:00:00 A1c), blood [code = Practice HbA1c (hemoglobin A1c), blood] Diagnostic Test 2022-06-05 lipid panel, serum [facility] Pending 00:00:00 [code = lipid panel, Practic e serum] Diagnostic Test 2022-06-05 CMP, serum or plasma [facility] Family Pending 00:00:00 [code = CMP, serum or Practi ce plasma] Diagnostic Test 2022-06-05 CBC w/ auto diff [facility] Pending 00:00:00 [code = CBC w/ auto Practice diff] Diagnostic Test 2022-06-05 urinalysis, dipstick [facility] Pending 00:00:00 [code = urinalysis, Practice dipstick] Future Scheduled Test COVID-19 VACCINE (1) [facility] [code = COVID-19 VACCINE (1)] Future Scheduled Test Hepatitis C screening [facility] (procedure) [code = 577710135] Future Scheduled Test Screening for [facility] malignant neoplasm of cervix (procedure) [code = 419062132] Future Scheduled Test BREAST CANCER [facility] SCREENING [code = BREAST CANCER SCREENING] Future Scheduled Test COLONOSCOPY SCREENING [facility] [code = COLONOSCOPY SCREENING] Future Scheduled Test SHINGLES VACCINES [facility] (#1) [code = SHINGLES VACCINES (#1)] Future Scheduled Test [address]+ PNEUMOCO[address] [facility] VACCINE (1 of 1 - PPSV23) [code = 65+ PNEUMOCOCCAL VACCINE (1 of 1 - PPSV23)] Future Scheduled Test INFLUENZA VACCINE [facility] [code = INFLUENZA VACCINE] Future Appointment 2022-09-25 Racheal Jordan, [address] [facility] Family 11:00:00 [facility] Practice [address], [place] [address] Future Appointment 2022-09-05 Racheal Jordan, 6[address] Jan[facility] Family 00:00:[address] [address] Instructions [facility] Family Practice Encounters Start End Encounter Admission Attending Care Care Encounter Source Date/Time Date/Time Type Type Clinicians Facility Department ID 2021-02-03 Inpatient HCAPM JESUS [id number] [facility] 11:09:00 [id number] [facility] 2020-05-24 Inpatient HCAPM JESUS [id number] [facility] 11:12:00 [id number] [facility] 2022-07-13 2022-07-13 Outpatient Severns_D VFP VFP [id number] [facility] 00:00:00 00:00:00 [id number] Family Practic e 2022-06-25 2022-06-25 Outpatient Severns_D VFP VFP [id number] [id number] [facility] 00:00:00 00:00:00 [id number] Family Practic e 2022-06-05 2022-06-05 Outpatient Severns_D VFP VFP [id number] [id number] [facility] 05:57:00 05:57:00 [id number] Family Practic e 2022-06-05 2022-06-05 Daneila VFP [place] - [id number] V illage 00:00:00 00:00:00 Janeth Jordan Famil y PA: [id number] Medical - Pract [place] [address], ([facility]) [place] [address] , Ph. 2022-05-27 2022-05-27 Outpatient Severns_D VFP VFP [id number] [id number] [facility] 01:02:00 01:02:00 [id number] Family Practic e 2022-05-27 2022-05-27 Outpatient Berry_S_AUS VFP VFP [id number] [facility] 01:02:00 01:02:00 [id number] Family Practic e 2022-05-27 2022-05-27 Outpatient Berry_S_AUS VFP VFP [id number] [facility] 01:02:00 01:02:00 [id number] Family Practic e 2022-05-10 2022-05-10 Outpatient Severns_D VFP VFP [id number] [facility] 12:19:00 12:19:00 [id number] Family Practic e 2022-05-06 2022-05-06 Outpatient Berry_S_AUS VFP VFP [id number] [place] 10:18:00 10:18:00 [id number] Family Practic e 2022-05-03 2022-05-03 Outpatient Severns_D VFP VFP [id number] [facility] 01:53:00 01:53:00 [id number] Family Practic e 2022-05-01 2022-05-01 Outpatient Severns_D VFP VFP [id number] [id number] [place] 01:30:00 01:30:00 [id number] Family Practic e 2022-04-29 2022-04-29 Outpatient Severns_D VFP VFP [id number] [id number] [place] 10:53:00 10:53:00 [id number] Family Practic e 2022-04-28 2022-04-28 Outpatient Severns_D VFP VFP [id number] [facility] 10:28:00 10:28:00 [id number] Family Practic e 2022-04-27 2022-04-27 Outpatient Severns_D VFP VFP [id number] [id number] [facility] 05:30:00 05:30:00 [id number] Family Practic e 2022-04-26 2022-04-26 Outpatient Severns_D VFP VFP [id number] [id number] [place] 06:29:00 06:29:00 [id number] Family Practic e 2022-04-21 2022-04-21 Outpatient Severns_D VFP VFP [id number] [id number] Village 03:06:00 03:06:00 [id number] Family Practic e 2022-04-06 2022-04-06 Outpatient Severns_D VFP VFP [id number] [id number] [facility] 03:10:00 03:10:00 [id number] Family Practic e 2022-04-06 2022-04-06 Daneila VFP [place] - [id number] V illage 00:00:00 00:00:00 Janeth Jordan Famil y PA: [address] Medical - Pract [facility], [place] [address], ([place] [address] , Ph. 2022-03-27 2022-03-27 Outpatient Severns_D VFP VFP [id number] [id number] [facility] 01:13:00 01:13:00 [id number] Family Practic e 2022-03-27 2022-03-27 Outpatient Berry_S_AUS VFP VFP [id number] [facility] 01:13:00 01:13:00 [id number] Family Practic e 2022-02-20 2022-02-20 Outpatient Berry_S_AUS VFP VFP [id number] [facility] 02:35:00 02:35:00 [id number] Family Practic e 2022-02-20 2022-02-20 Outpatient Berry_S_AUS VFP VFP [id number] [facility] 02:35:00 02:35:00 [id number] Family Practic e 2022-02-20 2022-02-20 Outpatient Berry_S_AUS VFP VFP [id number] [facility] 02:35:00 02:35:00 [id number] Family Practic e 2022-02-20 2022-02-20 Outpatient Berry_S_AUS VFP VFP [id number] [facility] 02:35:00 02:35:00 [id number] Family Practic e 2022-02-20 2022-02-20 Outpatient Berry_S_AUS VFP VFP [id number] [facility] 02:35:00 02:35:00 [id number] Family Practic e 2022-02-18 2022-02-18 Outpatient Severns_D VFP VFP [id number] [id number] [facility] 03:42:00 03:42:00 [id number] Family Practic e 2022-02-17 2022-02-17 Outpatient Severns_D VFP VFP [id number] [id number] [facility] 06:49:00 06:49:00 [id number] Family Practic e 2022-02-17 2022-02-17 Daneila VFP [place] - [id number] V illage 00:00:00 00:00:00 Janeth Jordan Famil y PA: [address] Medical - Pract [facility], [place] [address], ([facility]) [place] [address] , Ph. 2021-11-25 2021-11-25 Emergency EM Paco Clayton [facility] JESUS [id number] [facility] 12:52:00 14:50:00 [id number] [facility] 2021-11-25 2021-11-25 Emergency EM Paco Clayton HCAPM HCAPM [id number] [facility] 12:52:00 14:50:00 98 [facility] 2021-07-03 2021-07-03 Outpatient RUSTY Pelaez HCAPM CESARIO [id number] [facility] 08:00:00 08:00:00 Krеленаali [id number] [facility] 2021-02-03 2021-02-03 Outpatient Edis, HCACL LABO [id number] [facility] 18:51:00 18:51:00 Andrew [id number] [facility] 2020-12-30 2020-12-30 Outpatient RUSTY Pelaez, HCAPM RADI [id number] [facility] 16:35:00 16:35:00 Tevin [id number] [facility] 2020-11-26 2020-11-26 Laboratory Lab, [facility] [id number] 16:29:14 16:49:14 Only Fam Pob I Health [id number] [place] [id number] Professio [id number] nal [address] 2020-11-26 2020-11-26 Outpatient R ESAU, [facility] [id number] Univers 16:40:00 16:40:00 JAMIE van [facility] 2020-10-04 2020-10-05 Outpt Diag nullFlavo [facility] [id number] Memoria 15:16:00 05:59:00 Services r Outpatient 02 l [facility] 2020-05-24 2020-05-24 Outpatient Gualberto, HCACL LABO [id number] [facility] 23:56:00 23:56:00 Rehana [id number] [facility] 2020-05-23 2020-05-24 Outpt Diag nullFlavo [facility] [id number] Memoria 19:31:00 04:59:00 Services r Outpatient 00 l [facility] Results Test Description Test Time Test Comments Results Result Comments Source Hemoglobin A1c/Hemoglobin.total in Blood 2022-06-08 00:00:00 Test Item Value Reference Range Interpretation Comme nts Hemoglobin A1c/Hemoglobin.total in Blood (test code = 4548-4) 6.1 % 4.8-5.6 H Glucose mean value [Mass/volume] in Blood Estimated from 128 mg/dL glycated hemoglobin (test code = 82445-2) [facility] W Auto Differential panel - [id number] 00:00:00 Test Item Value Reference Range Interpretation Comments Leukocytes [#/volume] in Blood 7.9 x10e3/uL 3.4-10.8 by Automated count (test code = 6690-2) Erythrocytes [#/volume] in 4.93 x10e6/uL 3.77-5.28 Blood by Automated count (test code = 789-8) Hemoglobin [Mass/volume] in 13.8 g/dL 11.1-15.9 Blood (test code = 718-7) Hematocrit [Volume Fraction] of 44.5 % 34.0-46.6 Blood by Automated count (test code = 4544-3) Erythrocyte mean corpuscular 90 fL 79-97 volume [Entitic volume] by Automated count (test code = 787-2) Erythrocyte mean corpuscular 28.0 pg 26.6-33.0 hemoglobin [Entitic mass] by Automated count (test code = 785-6) Erythrocyte mean corpuscular 31.0 g/dL 31.5-35.7 L hemoglobin concentration [Mass/volume] by Automated count (test code = 786-4) Erythrocyte distribution width 13.4 % 11.7-15.4 [Ratio] by Automated count (test code = 788-0) Platelets [#/volume] in Blood 357 x10e3/uL 150-450 by Automated count (test code = 777-3) Neutrophils/100 leukocytes in 46 % not estab. Blood by Automated count (test code = 770-8) Lymphocytes/100 leukocytes in 45 % not estab. Blood by Automated count (test code = 736-9) Monocytes/100 leukocytes in 6 % not estab. Blood by Automated count (test code = 5905-5) Eosinophils/100 leukocytes in 2 % not estab. Blood by Automated count (test code = 713-8) Basophils/100 leukocytes in 1 % not estab. Blood by Automated count (test code = 706-2) Neutrophils [#/volume] in Blood 3.6 x10e3/uL 1.4-7.0 by Automated count (test code = 751-8) Lymphocytes [#/volume] in Blood 3.6 x10e3/uL 0.7-3.1 H by Automated count (test code = 731-0) Monocytes [#/volume] in Blood 0.5 x10e3/uL 0.1-0.9 by Automated count (test code = 742-7) Eosinophils [#/volume] in Blood 0.1 x10e3/uL 0.0-0.4 by Automated count (test code = 711-2) Basophils [#/volume] in Blood 0.0 x10e3/uL 0.0-0.2 by Automated count (test code = 704-7) Immature granulocytes/100 0 % not estab. leukocytes in Blood by Automated count (test code = 90150-6) Immature granulocytes 0.0 x10e3/uL 0.0-0.1 [#/volume] in Blood by Automated count (test code = 67354-5) Morphology [Interpretation] in note: Blood Narrative (test code = 20669-7) [facility] - Serum or Plasma 2022-06-07 00:00:00 Test Item Value Reference Range Interpretation Comments Glucose [Mass/volume] in Serum 82 mg/dL 65-99 or Plasma (test code = 2345-7) Urea nitrogen [Mass/volume] in 17 mg/dL 8-27 Serum or Plasma (test code = 3094-0) Creatinine [Mass/volume] in 0.73 mg/dL 0.57-1.00 Serum or Plasma (test code = 2160-0) eGFR (test code = eGFR) 91 mL/min/1.73 >59 Urea nitrogen/Creatinine [Mass 23 12-28 Ratio] in Serum or Plasma (test code = 3097-3) Sodium [Moles/volume] in Serum 139 mmol/L 134-144 or Plasma (test code = 2951-2) Potassium [Moles/volume] in 4.7 mmol/L 3.5-5.2 Serum or Plasma (test code = 2823-3) Chloride [Moles/volume] in 101 mmol/L 96-106 Serum or Plasma (test code = 2075-0) Carbon dioxide, total 21 mmol/L 20-29 [Moles/volume] in Serum or Plasma (test code = 2027-) Calcium [Mass/volume] in Serum 9.7 mg/dL 8.7-10.3 or Plasma (test code = 85159-2) Protein [Mass/volume] in Serum 7.0 g/dL 6.0-8.5 or Plasma (test code = 2885-2) Albumin [Mass/volume] in Serum 4.6 g/dL 3.8-4.8 or Plasma (test code = 1751-7) Globulin [Mass/volume] in 2.4 g/dL 1.5-4.5 Serum by calculation (test code = 34692-5) Albumin/Globulin [Mass Ratio] 1.9 1.2-2.2 in Serum or Plasma (test code = 1759-0) Bilirubin.total [Mass/volume] 0.3 mg/dL 0.0-1.2 in Serum or Plasma (test code = 1974-) Alkaline phosphatase 76 IU/L 44-121 [Enzymatic activity/volume] in Serum or Plasma (test code = 6768-6) Aspartate aminotransferase 19 IU/L 0-40 [Enzymatic activity/volume] in Serum or Plasma (test code = 1920-8) Alanine aminotransferase 13 IU/L 0-32 [Enzymatic activity/volume] in Serum or Plasma (test code = 1742-6) [facility] - Serum or [id number] 00:00:00 Test Item Value Reference Range Interpretation Comments Cholesterol [Mass/volume] in Serum 220 mg/dL 100-199 H or Plasma (test code = 2093-3) Triglyceride [Mass/volume] in Serum 290 mg/dL 0-149 H or Plasma (test code = 2571-8) Cholesterol in HDL [Mass/volume] in 34 mg/dL >39 L Serum or Plasma (test code = 2085-9) Cholesterol in VLDL [Mass/volume] 52 mg/dL 5-40 H in Serum or Plasma by calculation (test code = 47558-6) Cholesterol in LDL [Mass/volume] in 134 mg/dL 0-99 H Serum or Plasma by calculation (test code = 13524-2) [facility] [id number] 00:00:00 Test Item Value Reference Range Interpretation Comments please note (test code = please note) [facility] - [id number] 17:38:00 Test Item Value Reference Range Interpretation Comments Color Color (test code = Color light yellow Color) Color Appearance (test code = clear Color Appearance) Color Glucose (test code = Color negative Glucose) Color Bilirubin (test code = negative Color Bilirubin) Color Ketones (test code = Color negative Ketones) Color Specific [place] (test 1.010 code = Color Specific [place]) Color Blood (test code = Color negative Blood) Color PH (test code = Color PH) 6.5 Color Protein (test code = Color negative Protein) Color Urobilinogen (test code = 0.2 Color Urobilinogen) Color Nitrites (test code = negative Color Nitrites) Color Leukocytes (test code = negative Color Leukocytes) [facility] [id number] 13:46:00 Test Item Value Reference Range Interpretation Comments Covid 19 Negative Negative A negative resu lt does not InHouse NTX preclude the SA RS-COV-2 (test code = viralinfection and should not be [id number]) used as the so le basis forpatient karlos gement decisions. Negative result s must becombined with clinical o bservations, patient history , andepidemiologi gaudencio information. Viral levels in clinicalsamples below the detec tion limit of the assay could felipe d tonegative results. This t est was performed using the [employer] SmartTM COVID-19 PCRassay. This test was developed and i ts performancechar acteristics were determined by [facility]. Thi s test has notbeen FDA rekha ared or approved. This test is au thorized by theFDA under Em ergency Use Authorization(E UA). The EUA willremain in e ffect unless it is terminated o r revoked by FDA . Testing malaika eters have not been validated for screeningasympt omatic patients. This test was v alidated according to th e FDA's guidancedocumen t "Policy for Diagnostics vincent ting in LaboratoriesCer tified to Perform High Complexity Testing under CLIA". Is the patient going to be discharged home? YIs the patient going to be discharged home? YFirst test? NoEmployed in Healthcare? NoSymptomatic as defined by CDC? YesDate of Symptom Onset: [id number] due to COVID? NoIn ICU due to COVID? NoResident in a congregate care setting? No? NoAge at collection: YUA RFLX MICR CULT IF [id number] 12:22:00 Test Item Value Reference Range Interpretation [...] Indication for culture: Dysuria/Frequency- CT HEAD/BRAIN W/O [id number] 17:12:00[facility] : 1955 Sex: F Name: BOLA DELVALLE [facility] : 1955 Age/S: 65 / F [id number] Unit #: [id number] Loc: [place] [address] Phys: Tevin Pelaez DO Acct: [id number] Dis Date: Status: REG CLI PHONE #: [phone] Exam Date: 12/30/2020 9170 FAX #: Reason: TENSION TYPE HEADACHE EXAMS: CPT: [id number] CT HEAD/BRAIN W/O CONT 66718 EXAM: - CT HEAD/BRAIN W/O CONT Location code:C3 HISTORY: TENSION TYPE HEADACHE TECHNIQUE: Axial CT images from the skull base to the vertex without intravenous contrast. Coronal and sagittal reformatted images were created from the data set. One or more of the following dose reduction techniques were used: Automated exposure control, adjustment of the mA and/or kV according to patient size, and/or utilization of iterative reconstruction technique. DLP: 804 mGy-cm. COMPARISON: 05/20/2016 FINDINGS: Intracranial: No abnormal brain parenchymal density. No evidence of acute infarction, intracranial hemorrhage, mass or mass effect, or abnormal extra- axial fluid collection. 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 The ventricular system and sulci are age appropriate. The density in the larger dural sinuses is grossly normal. Bones: There is no evidence of acute displaced calvarial fracture. Sinuses: The visualized portions of the paranasal sinuses demonstrate no significantopacification.The mastoid air cells are clear. Orbits/Soft Tissues: The visualized orbits show no significant abnormalities. The visualized soft tissues are unremarkable. IMPRESSION: 1. No CT evidenceof acute intracranial abnormality. at 1712 Reported and signed by: Broderick Torres MD PAGE 1 Signed Report (CONTINUED) Name: BOLA DELVALLE [facility] : 1955 Age/S: 65 / F [id number] Unit #: [id number] Loc: [place] [address] Phys: Tevin Pelaez DO Acct: [id number] Dis Date: Status: REG CLI PHONE #: [phone] Exam Date: 12/30/2020 1656 FAX #: Reason: TENSION TYPE HEADACHE EXAMS: CPT: [id number] CT HEAD/BRAIN W/O CONT 83234 (Continued) CC: Tevin Pelaez DO Technologist:RT Del(R)(CT)(MRI) CTDI: DLP: Trnscb Date/Time: 12/30/2020 (1712) [email or web address] Orig Print D/T: S: 12/30/2020 (3388) PAGE 2 Signed ReportNovel Coronavirus 2019 [id number] 09:51:00 Test Item Value Reference Range Interpretation Comments Novel Coronavirus Negative Negative THIS TEST PROCEDURE HAS 2019 nCoV (test code ROSIBEL ALBRECHT = COVID19) LIMITATIONS: TH E DETECTION OF RAL NUCLEIC ACID IS DEPENDENT UPON PROPERSPECIMEN COLLECTION, SELF DLING, TRANSPORTATION, STORAGE, ANDPREPARATION. FAILURE TO OBSERVE PROP ER PROCEDURES IN A OK ONEOF THESE STEPS CAN LEAD TO INCORRECT [...]
--- NOTE | 2022-07-19 13:00 | RAD REPORT ---
EXAM DESCRIPTION: Sharon Single View07/19/2022 12:51 pm CLINICAL HISTORY: Congestion COMPARISON: 2020 FINDINGS: The lungs appear clear of acute infiltrate. The heart is normal size IMPRESSION: No acute abnormalities displayed
--- NOTE | 2022-07-19 14:21 | ER ---
Nurse's Notes [facility] Name: Tessa Delvalle Age: 66 yrs Sex: Female : 1955 Arrival Date: 07/19/2022 Time: 11:24 Bed 12 Private MD: Diagnosis: Cough;Acute upper respiratory infection, unspecified Presentation: 07/19 11:39 Chief complaint: Patient states: cough, body aches, congestion and headaches, worse at ss night. Pt reports this began 1 week ago. Denies fever. Coronavirus screen: Client presents with at least one sign or symptom that may indicate coronavirus-19. Ebola Screen: Patient denies exposure to infectious person. Patient denies travel to an Ebola-affected area in the 21 days before illness onset. Initial Sepsis Screen: Does the patient meet any 2 criteria? No. Patient's initial sepsis screen is negative. Does the patient have a suspected source of infection? No. Patient's initial sepsis screen is negative. Risk Assessment: Do you want to hurt yourself or someone else? Patient reports no desire to harm self or others. Onset of symptoms was July 11, 2022. 11:39 Method Of Arrival: Ambulatory ss 11:39 Acuity: ASTON 4 ss Historical: - Allergies: 11:41 No Known Allergies; ss - PMHx: 11:41 Borderline Diabetes; breast cancer; CHEMO/RADIATION; ss - PSHx: 11:41 bladder mesh; breast CA with chemo and radiation; hysterectomy; ss - Immunization history:: Client reports receiving the 2nd dose of the Covid vaccine. - Social history:: Smoking status: Patient denies any tobacco usage or history of. Screenin:30 Abuse screen: Denies threats or abuse. Denies injuries from another. Nutritional kb3 screening: No deficits noted. Tuberculosis screening: No symptoms or risk factors identified. Fall Risk None identified. Assessment: 13:30 General: Pt moves to room 12 for further evaluation and disposition. kb3 13:30 Pain: Complains of pain in head. Neuro: No deficits noted. kb3 13:30 Reassessment: No changes from previously documented assessment. kb3 14:54 Reassessment: Patient appears in no apparent distress at this time. Patient and/or ss family updated on plan of care and expected duration. Pain level reassessed. Patient is alert, oriented x 3, equal unlabored respirations, skin warm/dry/pink. Vital Signs: 11:39 BP 142 / 63; Pulse 81; Resp 16; Temp 97.8(TE); Pulse Ox 98% on R/A; Weight 90.72 kg; ss Height 5 ft. 2 in. (157.48 cm); Pain 5/10; 14:04 BP 154 / 63; Pulse 84; Resp 20; Pulse Ox 100% ; Pain 4/10; kb3 11:39 Body Mass Index 36.58 (90.72 kg, 157.48 cm) ED Course: 11:24 Patient arrived in ED. rg4 11:41 Triage completed. ss 11:41 Arm band placed on left wrist. ss 11:54 Nilesh Stoll is PHCP. jl9 11:54 Cr Randhawa MD is Attending Physician. jl9 12:52 XRAY Chest (1 view) In Process Unspecified. EDMS 13:30 Patient has correct armband on for positive identification. Bed in low position. Call kb3 light in reach. 13:30 No provider procedures requiring assistance completed. kb3 13:32 Eva Guzman, RN is Primary Nurse. kb3 14:54 Patient did not have IV access during this emergency room visit. ss Administered Medications: No medications were administered Medication: 13:30 VIS not applicable for this client. kb3 Outcome: 14:20 Discharge ordered by . jl9 14:54 Discharged to home ambulatory. ss 14:54 Condition: good 14:54 Discharge instructions given to patient, Instructed on discharge instructions, follow up and referral plans. Demonstrated understanding of instructions, follow-up care, Prescriptions given X 3. 14:55 Patient left the ED. ss Signatures: Dispatcher [employer] EDMS Junie Lance, RN RN Josselin Valdes rg4 Nilesh Stoll jl9 Eva Guzman, RN RN kb3
--- NOTE | 2022-07-19 14:21 | EDPHYS ---
Physician Documentation [facility] Name: Tessa Delvalle Age: 66 yrs Sex: Female : 1955 Arrival Date: 07/19/2022 Time: 11:24 Bed 12 Private MD: ED Physician Cr Randhawa HPI: 07/19 12:24 This 66 yrs old Female presents to ER via Ambulatory with complaints of jl9 Headache, Breathing Difficulty, Cough, Congestion. 12:24 The patient complains of pain to the forehead. The patient describes the headache as jl9 aching. Onset: The symptoms/episode began/occurred 1 week(s) ago. Associated signs and symptoms: Pertinent positives: malaise. Headache History: Denies prior headaches. Historical: - Allergies: 11:41 No Known Allergies; ss - PMHx: 11:41 Borderline Diabetes; breast cancer; CHEMO/RADIATION; ss - PSHx: 11:41 bladder mesh; breast CA with chemo and radiation; hysterectomy; ss - Immunization history:: Client reports receiving the 2nd dose of the Covid vaccine. - Social history:: Smoking status: Patient denies any tobacco usage or history of. ROS: 12:24 Constitutional: Negative for fever, chills, and weight loss, Eyes: Negative for injury, jl9 pain, redness, and discharge, ENT: Negative for injury, pain, and discharge, Neck: Negative for injury, pain, and swelling, Cardiovascular: Negative for chest pain, palpitations, and edema. 12:24 Abdomen/GI: Negative for abdominal pain, nausea, vomiting, diarrhea, and constipation, Back: Negative for injury and pain, : Negative for injury, bleeding, discharge, and swelling, MS/Extremity: Negative for injury and deformity, Skin: Negative for injury, rash, and discoloration. 12:24 Psych: Negative for depression, anxiety, suicide ideation, homicidal ideation, and hallucinations, Allergy/Immunology: Negative for hives, rash, and allergies, Endocrine: Negative for neck swelling, polydipsia, polyuria, polyphagia, and marked weight changes, Hematologic/Lymphatic: Negative for swollen nodes, abnormal bleeding, and unusual bruising. 12:24 Respiratory: Positive for cough, shortness of breath. 12:24 Neuro: Positive for weakness. Exam: 12:25 Constitutional: This is a well developed, well nourished patient who is awake, alert, jl9 and in no acute distress. Head/Face: Normocephalic, atraumatic. Eyes: Pupils equal round and reactive to light, extra-ocular motions intact. Lids and lashes normal. Conjunctiva and sclera are non-icteric and not injected. Cornea within normal limits. Periorbital areas with no swelling, redness, or edema. ENT: Mucous membranes moist. Neck: Trachea midline, no thyromegaly or masses palpated, and no cervical lymphadenopathy. Supple, full range of motion without nuchal rigidity, or vertebral point tenderness. No Meningismus. Chest/axilla: Normal chest wall appearance and motion. Nontender with no deformity. No lesions are appreciated. Cardiovascular: Regular rate and rhythm with a normal S1 and S2. No gallops, murmurs, or rubs. Normal PMI, no JVD. No pulse deficits. 12:25 Abdomen/GI: Soft, non-tender, with normal bowel sounds. No distension or tympany. No guarding or rebound. No evidence of tenderness throughout. Back: No spinal tenderness. No costovertebral tenderness. Full range of motion. Skin: Warm, dry with normal turgor. Normal color with no rashes, no lesions, and no evidence of cellulitis. MS/ Extremity: Pulses equal, no cyanosis. Neurovascular intact. Full, normal range of motion. Neuro: Awake and alert, GCS 15, oriented to person, place, time, and situation. Cranial nerves II-XII grossly intact. Motor strength 5/5 in all extremities. Sensory grossly intact. Cerebellar exam normal. Normal gait. Psych: Awake, alert, with orientation to person, place and time. Behavior, mood, and affect are within normal limits. 12:25 Respiratory: the patient does not display signs of respiratory distress, Respirations: normal, Breath sounds: + upper airway congestion. Vital Signs: 11:39 BP 142 / 63; Pulse 81; Resp 16; Temp 97.8(TE); Pulse Ox 98% on R/A; Weight 90.72 kg; ss Height 5 ft. 2 in. (157.48 cm); Pain 5/10; 14:04 BP 154 / 63; Pulse 84; Resp 20; Pulse Ox 100% ; Pain 4/10; kb3 11:39 Body Mass Index 36.58 (90.72 kg, 157.48 cm) ss MDM: 11:55 Patient medically screened. jl9 12:25 Data reviewed: vital signs, nurses notes. jl9 14:20 Differential diagnosis: sinusitis, URI. Counseling: I had a detailed discussion with jl9 the patient and/or guardian regarding: the historical points, exam findings, and any diagnostic results supporting the discharge/admit diagnosis, lab results, radiology results, to return to the emergency department if symptoms worsen or persist or if there are any questions or concerns that arise at home. 07/19 11:42 Order name: Flu; Complete Time: 14:19 ss 07/19 11:42 Order name: COVID-19 SARS RT PCR (Document "Date of Onset" if Symptomatic); Complete ss Time: 13:58 07/19 11:54 Order name: XRAY Chest (1 view); Complete Time: 13:08 jl9 Administered Medications: No medications were administered Disposition: 16:31 Co-signature as Attending Physician, Cr Randhawa MD. rn Disposition Summary: 07/19/22 14:20 Discharge Ordered Location: Home jl9 Condition: Stable jl9 Diagnosis - Cough jl9 - Acute upper respiratory infection, unspecified jl9 Followup: jl9 - With: Private Physician - When: 1 - 2 days - Reason: Recheck today's complaints, Continuance of care, Re-evaluation by your physician Discharge Instructions: - Discharge Summary Sheet jl9 - Upper Respiratory Infection, Adult jl9 - Cough, Adult, [id number]-Muvc jl9 Forms: - Medication Reconciliation Form jl9 - Thank You Letter jl9 - Antibiotic Education jl9 - Prescription Opioid Use jl9 Prescriptions: - albuterol sulfate 90 mcg/actuation Inhalation HFA aerosol inhaler - inhale 2 puff by INHALATION route every 6 hours As needed; 18 gram; Refills: 0, jl9 Product Selection Permitted - azithromycin 250 mg Oral tablet - take 2 tablet by ORAL route once daily for 1 day then 1 tablet (250 mg) by oral jl9 route once daily for 4 days; 6 tablet; Refills: 0, Product Selection Permitted - [id number] 2-30-10 mg/5 mL Oral syrup - take 10 milliliter by ORAL route every 4 hours As needed; 100 milliliter; jl9 Refills: 0, Product Selection Permitted Signatures: Dispatcher [employer] Cr Holder MD MD rn Junie Lance RN RN Nilesh Mcdonald
[2022-07-19 15:10] VITALS: TEMP 97.8
[2022-07-19 15:14] VITALS: BP 154/63; O2SAT 100
== END 2022-07-19 14:55 | disposition home or self-care (01) ==
LOC: ER 11:21
DX: J06.9 Acute upper respiratory infection, unspecified (principal); Z20.822 Contact with and (suspected) exposure to COVID-19; Z85.3 Personal history of malignant neoplasm of breast
CPT/HCPCS: 87804 ×2; 71045; U0003; 99283